=== PATIENT | female | born 1980 | race Caucasian/White ===

== ENCOUNTER 2017-12-29 09:00 | Inpatient (IN) ==
--- NOTE | 2017-12-29 09:40 | Emergency Department Note ---
Disposition Clinical Impression: Community acquired pneumonia Qualifiers: Laterality: right Lung location: middle lobe of lung Qualified Code(s): J18.1 - Lobar pneumonia, unspecified organism Disposition: Admitted As Inpatient Condition: Fair General Adult HPI - General Chief complaint: ED Shortness of Breath/Dyspnea Stated complaint: CAS Time Seen by Provider: 12/29/17 09:06 Source: patient, family Mode of arrival: ambulatory Limitations: no limitations Nursing Notes Reviewed: Yes Vital Signs Reviewed: Yes - History of Present Illness HPI Narrative: 37-year-old female with no significant past medical history but known methamphetamine and IV heroin abuse presenting to the emergency department chief complaint of right axilla pain. Patient states this morning she woke up and she had severe right axilla pain. Denies any radiation into the chest. She states she is unable to take a deep breath due to the pain. Denies any IV injection into the site. Denies any rash. Patient states she has been having chills at home but denies any fevers or cough or productive sputum. Patient denies any cardiac or respiratory history. Denies any COPD or asthma. She does state that she smoked methamphetamine approximately 5 days ago. Pain Scale: 9 - Related Data Home Medications Medication Instructions Recorded Confirmed No Known Home Drugs 01/24/16 01/24/16 Allergies Allergy/AdvReac Type Severity Reaction Status Date / Time No Known Allergies Allergy Verified 01/24/16 20:07 All systems ED: reviewed and negative except as stated. Constitutional: Reports: chills. Denies: fever, weakness Eyes: Reports: as per HPI ENT ED: Reports: as per HPI Cardiovascular: Denies: chest pain, palpitations, dyspnea on exertion Respiratory: Denies: cough, wheezes, hemoptysis Gastrointestinal: Denies: abdominal pain, nausea, vomiting Genitourinary: Reports: as per HPI Musculoskeletal: Reports: as per HPI Integumentary: Reports: as per HPI Neurological: Denies: weakness, numbness, paresthesias Psychiatric: Reports: as per HPI Endocrine: Reports: as per HPI Hematological/Lymphatic: Reports: as per HPI Allergic/Immunologic: Reports: as per HPI Past Medical History - Past Medical History Attestation: Yes The following information was validated with the patient. Medical history: Reports: hepatitis Surgical history: Reports: other (Bilateral tubal ligation) Psychiatric history: Reports: anxiety - Social History Smoking Status: Current every day smoker Smokeless Tobacco Status: No Alcohol use: Reports: occasionally Drug use: Reports: cocaine, opiates, marijuana, methamphetamine, IV Drug Use, prescription drug abuse Physical Exam - General Limitations: no limitations General appearance: alert, in no apparent distress - Head Head exam: atraumatic, normocephalic, normal inspection - Eye Eye exam: Present: normal appearance. Absent: scleral icterus, conjunctival injection - ENT ENT exam: mucous membranes dry - Neck Neck exam: Present: normal inspection, full ROM - Chest Chest inspection: Present: normal inspection, symmetric chest wall rise, tenderness (Tenderness to the right axilla and anterior chest wall. No fluctuance, rash or crepitus on exam). Absent: rash - Respiratory Respiratory exam: Present: other (decreased breath sounds throughout) - Cardiovascular Cardiovascular exam: Present: normal rhythm, tachycardia, normal heart sounds - Abdominal Exam Abdominal exam: Present: soft, Non-Tender. Absent: distention, guarding, rebound - Extremities Exam Extremities exam: Present: normal inspection, full ROM - Neurological Exam Neurological exam: Present: alert, oriented X3 - Psychiatric Psychiatric exam: Present: normal affect, normal mood - Skin Skin exam: Present: warm, intact Course Course Narrative: 37-year-old female presenting with right axilla pain. On exam patient does not have any sign of rash or abscess or crepitus in this area. Patient does state she smoked crystal meth approximately 5 days ago. Patient tachycardic in the room but otherwise vital signs stable. She is alert and oriented 3. At this time we will obtain basic laboratory analysis including CBC, CMP, two-view chest x-ray and EKG. Due to patient's history and tachycardia were also obtain a d-dimer. Disposition pending results. Patient agrees with this plan. - Reevaluation(s) Reevaluation #1: Patient d-dimer elevated. Chest x-ray shows possible pneumonia. We will obtain a CTA of the chest. Disposition pending results. Patient is alert and oriented 3 in the room with stable vital signs. Patient agrees with this plan. Reevaluation #2: CTA of the chest shows pneumonia. Concerning for septic emboli. Although patient is not febrile at this time a she does have history of IV drug use. We will plan to admit the patient for rule out endocarditis and treatment of community-acquired pneumonia. Patient is alert and oriented 3 in the room with stable vital signs. Patient agrees with this plan. I spoke with the hospitalist supervisor commissary production Dr. Acevedo who agrees to accept the patient. She would like us to provide the patient with ceftriaxone and azithromycin. Due to our concern for endocarditis we will also provide the patient with a one-time dose of vancomycin. Vital Signs Temperature 98 F 12/29/17 09:03 Pulse Rate 94 12/29/17 09:03 Respiratory Rate 20 12/29/17 09:03 Blood Pressure 109/74 12/29/17 09:03 O2 Sat by Pulse Oximetry 99 12/29/17 09:03 Temperature 98 F 12/29/17 09:10 Pulse Rate 101 12/29/17 14:54 Respiratory Rate 18 12/29/17 14:54 Blood Pressure 109/74 12/29/17 09:10 O2 Sat by Pulse Oximetry 99 12/29/17 14:54 Oxygen Delivery Oxygen Delivery Room Air Medical Decision Making - Lab Data Result diagrams: 12/29/17 10:23 12/29/17 10:23 Lab Results 12/29/17 12/29/17 12/29/17 Range/Units 10:23 10:23 10:23 WBC 7.8 (4.3-11.1) K/mcL RBC 4.29 (3.82-4.97) M/mcL Hgb 11.6 (11.5-15.4) g/dL Hct 35.7 (35.3-44.9) % MCV 83.2 (83.0-100.0) fL MCH 27.0 L (28.0-33.3) pg MCHC 32.5 (31.6-35.5) g/dL RDW 16.9 H (11.5-14.5) % Plt Count 107 L (140-400) K/mcL MPV 11.4 (9.4-12.4) fL Immature Gran % 0.4 (0-4) % Seg Neutrophils % 77.0 % Lymphocytes % 9.6 % Monocytes % 9.3 % Eosinophils % 3.6 % Basophils % 0.1 % Neutrophils # 6.0 (1.6-8.9) K/mcL Lymphocytes # 0.8 (0.6-4.6) K/mcL Monocytes # 0.7 (0.0-1.3) K/mcL Eosinophils # 0.3 (0.0-0.6) K/mcL Basophils # 0.0 (0.0-0.2) K/mcL Reactive Lymphocytes Present A (Not Present) Platelet Estimate Slight Decrease L (Normal) D-Dimer 2034 H (0-500) ng/mLFEU Sodium 133 L (136-145) mEq/L Potassium 3.2 L (3.5-5.1) mEq/L Chloride 98 (98-107) mEq/L Carbon Dioxide 27 (23-29) mEq/L BUN 19 (6-20) mg/dL Creatinine 0.81 (0.60-1.20) mg/dL Est GFR ( Amer) > 60 (> 60) Est GFR (Non-Af Amer) > 60 (> 60) BUN/Creatinine Ratio 23 (6-26) Glucose 105 (70-105) mg/dL Calculated Osmolality 279 L (280-300) Calcium 9.2 (8.6-10.3) mg/dL - EKG Data EKG #1 EKG attestation: Yes I reviewed and interpreted this EKG. EKG results narrative: Sinus tachycardia. On September 21 bpm. PVCs. OR interval 1:15, QRS 85, QTC 438. No sign of acute ST segment elevation or ischemia. Compared to previous EKG completed on 01/24/2016 no significant changes noted
--- NOTE | 2017-12-29 09:42 | Emergency Department Note ---
Disposition Clinical Impression: Community acquired pneumonia Qualifiers: Laterality: right Lung location: middle lobe of lung Qualified Code(s): J18.1 - Lobar pneumonia, unspecified organism Disposition: Admitted As Inpatient Condition: Fair Time of Disposition: 15:11 General Adult HPI - General Chief complaint: ED Shortness of Breath/Dyspnea Stated complaint: CAS Time Seen by Provider: 12/29/17 09:06 Source: patient, family Limitations: no limitations - History of Present Illness Pain Scale: 9 - Related Data Home Medications Medication Instructions Recorded Confirmed No Known Home Drugs 01/24/16 01/24/16 Allergies Allergy/AdvReac Type Severity Reaction Status Date / Time No Known Allergies Allergy Verified 01/24/16 20:07 Past Medical History - Past Medical History Medical history: Reports: hepatitis Surgical history: Reports: other (Bilateral tubal ligation) Psychiatric history: Reports: anxiety - Social History Smoking Status: Current every day smoker Smokeless Tobacco Status: No Alcohol use: Reports: occasionally Drug use: Reports: cocaine, opiates, marijuana, methamphetamine, IV Drug Use, prescription drug abuse Physical Exam - General Limitations: no limitations General appearance: alert, in no apparent distress Course Vital Signs Temperature 98 F 12/29/17 09:03 Pulse Rate 94 12/29/17 09:03 Respiratory Rate 20 12/29/17 09:03 Blood Pressure 109/74 12/29/17 09:03 O2 Sat by Pulse Oximetry 99 12/29/17 09:03 Temperature 98 F 12/29/17 09:10 Pulse Rate 101 12/29/17 14:54 Respiratory Rate 18 12/29/17 14:54 Blood Pressure 109/74 12/29/17 09:10 O2 Sat by Pulse Oximetry 99 12/29/17 14:54 Oxygen Delivery Oxygen Delivery Room Air Medical Decision Making - Lab Data Result diagrams: 12/29/17 10:23 12/29/17 10:23 Lab Results 12/29/17 12/29/17 12/29/17 Range/Units 10:23 10:23 10:23 WBC 7.8 (4.3-11.1) K/mcL RBC 4.29 (3.82-4.97) M/mcL Hgb 11.6 (11.5-15.4) g/dL Hct 35.7 (35.3-44.9) % MCV 83.2 (83.0-100.0) fL MCH 27.0 L (28.0-33.3) pg MCHC 32.5 (31.6-35.5) g/dL RDW 16.9 H (11.5-14.5) % Plt Count 107 L (140-400) K/mcL MPV 11.4 (9.4-12.4) fL Immature Gran % 0.4 (0-4) % Seg Neutrophils % 77.0 % Lymphocytes % 9.6 % Monocytes % 9.3 % Eosinophils % 3.6 % Basophils % 0.1 % Neutrophils # 6.0 (1.6-8.9) K/mcL Lymphocytes # 0.8 (0.6-4.6) K/mcL Monocytes # 0.7 (0.0-1.3) K/mcL Eosinophils # 0.3 (0.0-0.6) K/mcL Basophils # 0.0 (0.0-0.2) K/mcL Reactive Lymphocytes Present A (Not Present) Platelet Estimate Slight Decrease L (Normal) D-Dimer 2034 H (0-500) ng/mLFEU Sodium 133 L (136-145) mEq/L Potassium 3.2 L (3.5-5.1) mEq/L Chloride 98 (98-107) mEq/L Carbon Dioxide 27 (23-29) mEq/L BUN 19 (6-20) mg/dL Creatinine 0.81 (0.60-1.20) mg/dL Est GFR ( Amer) > 60 (> 60) Est GFR (Non-Af Amer) > 60 (> 60) BUN/Creatinine Ratio 23 (6-26) Glucose 105 (70-105) mg/dL Calculated Osmolality 279 L (280-300) Calcium 9.2 (8.6-10.3) mg/dL Attestation Statement - Attestation Attestation: I examined this patient and my medical decision-making was reviewed with the Resident Physician. I agree with the documented findings, disposition and treatment plan as described except to the extent set forth below. Patient to the ED complaining of pain in her right axilla. Onset yesterday. Denies injury. Denies fever. She does complain of a dry cough. States it hurts when she breathes. On examination patient sitting on the edge of the bed holding her right side. Does not want to move her right arm and she states it exacerbates the pain. There is no swelling over the area. There is no rash. There is no lesions. There is no crepitus. There is no swelling. Plan. Patient is an IV drug user. Last used 3 days ago. She has no central chest pain. No fever. No signs of endocarditis. She does not inject in this area. Her lungs are symmetric and clear. She is mildly tachycardic at 105 check a d- dimer. Chest x-ray EKG. EKG shows a mild tachycardia. No ischemic changes. Likely discharge if workup unremarkable. CT read as possible septic emboli. We will give IV vancomycin. Patient admitted for echo and blood cultures.
[2017-12-29 10:41] LABS: Basophils % 0.1 %; Eosinophils # 0.3 K/mcL (0.0-0.6); Eosinophils % 3.6 %; Hematocrit 35.7 % (35.3-44.9); Hemoglobin 11.6 g/dL (11.5-15.4); Immature Granulocytes % 0.4 % (0-4); Lymphocytes # 0.8 K/mcL (0.6-4.6); Lymphocytes % 9.6 %; Mean Corpuscular HGB Conc 32.5 g/dL (31.6-35.5); Mean Corpuscular Volume 83.2 fL (83.0-100.0); Mean Platelet Volume 11.4 fL (9.4-12.4); Monocytes # 0.7 K/mcL (0.0-1.3); Monocytes % 9.3 %; Platelet Count 107 K/mcL (140-400); Red Blood Count 4.29 M/mcL (3.82-4.97); Red Cell Distribution Width 16.9 % (11.5-14.5)
[2017-12-29 10:45] LABS: Platelet Estimate Slight Decrease (Normal); Reactive Lymphocytes Present (Not Present)
[2017-12-29 10:58] LABS: Calcium 9.2 mg/dL (8.6-10.3); Carbon Dioxide 27 mEq/L (23-29); Chloride 98 mEq/L (98-107); Glucose 105 mg/dL (70-105); Potassium 3.2 mEq/L (3.5-5.1); Sodium 133 mEq/L (136-145); eGFR For Non-African Americans > 60 (> 60)
[2017-12-29] MEDS ORDERED: Isovue-370 500 ML INFUS..BTL IV ONE (11:00)
[2017-12-29 11:26] LABS: BUN/Creatinine Ratio 23 (6-26); Blood Urea Nitrogen 19 mg/dL (6-20); Osmolality,Calculated 279 (280-300)
[2017-12-29] MEDS ORDERED: Ketorolac 15 MG/ML VIAL IVP ONE (13:12)
[2017-12-29] MEDS ORDERED: Naloxone 0.4 MG/ML INJ IVP PRN (13:28)
[2017-12-29] MEDS: cefTRIAXone 2,000 MG in Water for inj. (sterile) 20 ML 20 ML IVP ONE ×2 (13:54→14:10)
[2017-12-29] MEDS: Azithromycin 500 MG in D5% in Water 250 ML IVPB ONE ×2 (13:54→14:10)
--- NOTE | 2017-12-29 14:09 | Internal Med History&Physical ---
Date of Encounter: 12/29/17 Time of Encounter: 14:07 Internal Medicine - H&P: HPI Chief complaint: Chest pain Admitted From: Home Plans for Post Hospital Care: Home History of present illness: Ms. Arroyo is a 37 year old female with medical history of IV drug abuse and amphetamine abuse The patient presented to the emergency room with complaints of pleuritic chest pain that started 4 days ago. She reports being in her usual state of health until 4 days ago after shooting IV hearing through 1 over extremity veins developed sudden onset right-sided pleuritic chest pain radiating to her right axilla. Chest pain was worse on deep breathing, non-exertional with no known relieving or aggravating factors. She also reports onset of skin rash on her right lower extremity and left flank area around the same period. She denies fever or chills. She denies shortness of breath she denies cough. She has no sick contacts and she has no recent travels. She reports associated malaise and fatigue. She also reports associated arthralgias, poor urinary output, as well as myalgias. She reports smoking marijuana every other day, and injecting hearing when affordable. Last time she used IV heroine was 4 days ago. Workup in the ER was significant for sinus tachycardia with heart rate ranging from 90-110, hyponatremia and hypokalemia, no leukocytosis. She is afebrile. She has tachypnea with respiratory rates of 20. D-dimer was elevated at 2034. Chest CT showed possible septic emboli. The patient will be admitted inpatient for sepsis and suspected infective endocarditis. She is full code and educated about her diagnoses. Past Med Surg Social Fam HX - Past Medical History Medical history: hepatitis Additional medical history: chronic leg pain Psychiatric history: anxiety - Past Surgical History Surgical History: other (Bilateral tubal ligation) Additional surgical history: toncils removed, tubal ligation - Social History Smoking Status: Current every day smoker Smokeless Tobacco Status: No Alcohol use: occasionally Drug use: cocaine, opiates, marijuana, methamphetamine, IV Drug Use, prescription drug abuse - Family History Mother Living Status: Hx Family Endocrine Disorder: Yes Father Living Status: Still Living Internal Medicine - H&P: Meds No Known Home Drugs 01/24/16 [History] 3 Allergy/AdvReac Type Severity Reaction Status Date / Time No Known Allergies Allergy Verified 01/24/16 20:07 All Systems PM: A 10-system review of systems was performed and is negative for pertinent findings except as documented above in the HPI. - Constitutional Constitutional: chills, fever(s), malaise - EENT Eyes: no change in vision, no discharge, no pain, no photophobia Ears: no ear discharge, no ear pain, no tinnitus Nose, mouth and throat: no dysphagia, no nasal discharge, no neck pain, no sore throat - Cardiovascular Cardiovascular ROS IM: chest pain - Respiratory Respiratory: dyspnea, pain on inspiration - Gastrointestinal Gastrointestinal: no abdominal pain, no diarrhea, no hematemesis, no hematochezia, no melena, no nausea, no vomiting - Genitourinary Genitourinary: no change in urinary stream, no dysuria, no flank pain, no hematuria - Musculoskeletal Musculoskeletal ROS IM: arthralgias, no numbness, no tingling - Integumentary Integumentary IM: no rash, no unusual bruising - Neurological Neurological ROS: no confusion, no convulsions, no focal weakness, no numbness, no tingling, no tremor(s) - Hematologic/Lymphatic Hematologic/Lymphatic: no easy bruising - Constitutional Vitals: Temp Pulse Resp BP Pulse Ox 98 F 94 20 109/74 99 12/29/17 09:10 12/29/17 09:10 12/29/17 09:10 12/29/17 09:10 12/29/17 09:10 General appearance: Present: disheveled, mild distress (mild painful distress), pleasant Exam: see detailed exam below - Head Head exam: Present: atraumatic - Eye Eye exam: Present: PERRL, conjuntiva pink, sclera anicteric - ENT ENT exam: Present: mucous membranes moist - Neck Neck exam general surgery: Present: normal inspection - Respiratory Additional comments: Decreaased air entry bilaterally Exam limited by pleuritic pain, patient taking shallow breaths - Cardiovascular Cardiovascular exam: Present: +S1, +S2, systolic murmur (2nd LICS systolic murmur), tachycardia - GI/Abdominal GI/Abdominal exam: Present: normal bowel sounds, soft, no peritoneal signs. Absent: distended, tenderness - Extremities Exam Extremities exam: Present: warm, radial pulses palpable and symmetrical. Absent : calf tenderness, cyanotic, pedal edema - Neurological Exam Neurological exam: Present: alert, CN II-XII intact, oriented X3, no focal deficits. Absent: pronater drift, facial droop, speech deficit - Skin Skin exam: Present: dry, petechiae, rash. Absent: cyanosis, urticaria Additional comments: track holcomb from prior IV drug site Internal Med - H&P Results - Labs CBC & Chem 7: 12/29/17 10:23 12/29/17 10:23 - Assessment and plan (1) Infective endocarditis Current Visit: Yes Status: Suspected Assessment and plan: Patient with history of IV drug abuse, last use 4 days ago prior to onset of symptoms of pleuritic chest pain, mildly, arthralgias and skin rash. Workup here shows thrombocytopenia which is new, she has a new cardiac murmur, CAT scan shows septic emboli to both lungs Blood cultures have been drawn in the emergency room, will follow Repeat blood culture tomorrow a.m. Obtain echocardiogram to rule out vegetations Started on vancomycin and Zosyn empirically Monitor Vanco trough High-risk diagnosis Qualifiers: Infective endocarditis organism: unspecified organism Chronicity: acute Qualified Code(s): I33.0 - Acute and subacute infective endocarditis (2) Sepsis Current Visit: Yes Status: Acute Assessment and plan: Meets sepsis criteria with tachycardia HR >90, tachypnea, Bilateral PNA on Chest imaging Secondary to bilateral pneumonia and infective endocarditis. She also has new thrombocytopenia Obtain lactic acid STAT IVF hydration Follow blood cultures Patient is not making sputum, send urine legionella, and strep Ag Qualifiers: Sepsis type: sepsis due to unspecified organism Qualified Code(s): A41.9 - Sepsis, unspecified organism (3) Pneumonia Current Visit: Yes Status: Acute Assessment and plan: Management as an infective endocarditis patient has no cough and no sputum production Bilateral infiltrates on imaging suspicious for septic emboli Continue antibiotics Patient is not hypoxic, O2 supplementation prn Qualifiers: Pneumonia type: due to unspecified organism Laterality: bilateral Lung location: unspecified part of lung Qualified Code(s): J18.9 - Pneumonia, unspecified organism (4) Opiate abuse, continuous Current Visit: Yes Status: Chronic Assessment and plan: monitor for withdrawals treat withdrawals symptomatically encouraged cessation (5) Amphetamine abuse Current Visit: Yes Status: Chronic Assessment and plan: monitor for withdrawal, encourage cessation (6) Tobacco abuse Current Visit: Yes Status: Chronic Assessment and plan: encourage cessation NRT prn - Time Spent With Patient Total time spent is greater than 50% in coordination of care (as documented) at patient's floor/unit and/or counseling patient:
[2017-12-29] MEDS: Piperacillin/Tazobactam 3.375 GM in 0.9 % Sodium Chloride Mini Bag 100 ML IVPB SCH (15:43)
[2017-12-29] MEDS: 0.9 % Sodium Chloride 1,000 ML IVC SCH (15:44)
[2017-12-29 17:32] LABS: Adenovirus Not Detected (Not Detect); Bordetella Pertussis Not Detected (Not Detect); Chlamydophila pneumoniae Not Detected (Not Detect); Coronavirus 229E Not Detected (Not Detect); Coronavirus HKU1 Not Detected (Not Detect); Coronavirus NL63 Not Detected (Not Detect); Coronavirus OC43 Not Detected (Not Detect); Human Metapneumovirus Not Detected (Not Detect); Human Rhinovirus/Enterovirus DETECTED (Not Detect); Influenza A Subtype 2009 H1 Not Detected (Not Detect); Influenza A Untypeable Not Detected (Not Detect); Influenza B Not Detected (Not Detect); Mycoplasma pneumoniae Not Detected (Not Detect); Parainfluenza Virus 1 Not Detected (Not Detect); Parainfluenza Virus 2 Not Detected (Not Detect); Parainfluenza Virus 3 Not Detected (Not Detect); Parainfluenza Virus 4 Not Detected (Not Detect); Respiratory Syncytial Virus Not Detected (Not Detect)
[2017-12-29] MEDS ORDERED: *HR* LORazepam 2 MG/ML VIAL IVP ONE (19:17)
[2017-12-30] MEDS: Piperacillin/Tazobactam 3.375 GM in 0.9 % Sodium Chloride Mini Bag 100 ML IVPB SCH ×3 (01:47→17:46)
[2017-12-30 02:46] LABS: Alanine Aminotransferase 11 Units/L (7-52); Albumin 2.7 g/dL (3.5-5.7); Albumin/Globulin Ratio 0.8 (1.1-2.2); Alkaline Phosphatase 96 Units/L (34-104); Aspartate Amino Transferase 9 Units/L (13-39); BUN/Creatinine Ratio 21 (6-26); Bilirubin,Total 0.3 mg/dL (0.3-1.0); Blood Urea Nitrogen 17 mg/dL (6-20); Calcium 8.3 mg/dL (8.6-10.3); Carbon Dioxide 25 mEq/L (23-29); Chloride 102 mEq/L (98-107); Globulin 3.3 g/dL (2.4-3.5); Glucose 119 mg/dL (70-105); Osmolality,Calculated 279 (280-300); Potassium 3.2 mEq/L (3.5-5.1); Sodium 133 mEq/L (136-145); eGFR For Non-African Americans > 60 (> 60)
[2017-12-30] MEDS: 0.9 % Sodium Chloride 1,000 ML IVC SCH ×4 (03:23→20:57)
[2017-12-30] MEDS: Acetaminophen 325 MG TABLET PO PRN ×2 (08:18→15:09)
--- NOTE | 2017-12-30 08:27 | Internal Med Progress Note ---
<Nena Sutherland N - Last Filed: 12/30/17 14:11> Hospitalist Progress Note - Encounter Date of Encounter: 12/30/17 Time of Encounter: 08:27 - Subjective Interval History: Ms. Arroyo is a 37-year old female who presented to the ED on 12/29 complaining of pleuritic chest pain that first began approximately 4 days ago after shooting IV heroin. Chest CTA performed in the ED was significant for right middle lobe pneumonia and multiple lung lesions concerning for acute infective processes and/or septic emboli. She was admitted for workup and treatment of possible sepsis and suspected infective endocarditis. Nursing staff reported that the patient was complaining of 8/10 right-sided chest pain that was worse with cough. They also reported that her last bowel movement was approximatley 1-2 weeks ago; however, she refused any treatment for that saying "once the drugs get out of my system I'll go like crazy". At the time of exam, she was agitated and mildly diaphoretic. She denied any shortness of breath but did report non-reproducible right-sided chest/lung pain. She refused blood draw this morning, saying she "did not want to be stuck again"; however, she voiced agreement to obtaining additional IV access to allow for blood draws throughout her stay. She stated that she was starting to go through withdrawals and asked for something to make that process easier. She says that she was trying to "get clean" prior to this hospitalization. - Exam Vitals: Temp Pulse Resp BP Pulse Ox 99.3 F 101 16 117/73 92 12/30/17 08:13 12/30/17 08:13 12/30/17 08:13 12/30/17 08:13 12/30/17 08:13 Exam: * General: Adult female sitting up in bed. She appears restless and in mild distress. She is mildly diaphoretic. * HEENT: Atraumatic and normocephalic. * Cardiovascular: Regular rate and rhythm. S1 and S2 present. Murmur present over tricuspid area. * Respiratory: Diffuse expiratory wheezes present, worse on right. Diffusely decreased breath sounds bilaterally. Patient appears slightly dyspneic. * Gastrointestinal: Bowel sounds present x 4 quadrants. Abdomen is soft and nontender without rebound or guarding. * Extremities: No clubbing, cyanosis, or edema. - Assessment and Plan (1) Infective endocarditis Current Visit: Yes Status: Suspected Assessment and Plan: On initial evaluation in the ED, significant laboratory findings were as follows : WBC 7.8, platelets 107, presence of reactive lymphocytes, d-dimer 2034, sodium 133, and potassium 3.2. Reactive lymphocytes present. Lactric acid was 1.5 Chest XR demonstrated mild right-sided airspace disease and possible fluid within the fissure on the lateral view suspicious for pneumonia. Chest CTA demonstrated no evidence of acute pulmonary embolism. CTA did demonstrate peripheral ground-glass and consolidative opacity with the anterior right middle lobe most compatible with pneumonia. Further findings included scattered pulmonary nodules throughout both lungs concerning for acute inflammatory/infectious process, which may include septic emboli. Considering this patient's recent use of IV heroin, infectious disease has been consulted due to suspicion of septic emboli and new-onset murmur heard over tricuspid area. She has been started on vancomycin and zosyn. Blood and sputum cultures are pending. (2) Pneumonia Current Visit: Yes Status: Acute Assessment and Plan: Since admission, patient has developed cough productive of thick yellow sputum. She is currently on zosyn and vancomycin for suspected endocarditis. She does complain of 8/10 right-sided lung pain, particularly when coughing. Plan to continue with broad antibiotic coverage and duonebs Q6H PRN dyspnea/wheezing. Further evaluation per infectious disease recommendations. (3) Opiate abuse, continuous Current Visit: Yes Status: Chronic Assessment and Plan: Patient reports last using IV heroin approximately 4-5 days ago. She says she feels like she is starting to withdraw; however, vital signs remain stable. Will continue to monitor closely for symptoms of withdrawal. (4) Tobacco abuse Current Visit: Yes Status: Chronic Assessment and Plan: Nicotine patch PRN. DVT Prophylaxis: IPCDs. - Time Spent with Patient Total time spent is greater than 50% in coordination of care (as documented) at patient's floor/unit and/or counseling patient: Internal Medicine: Result - Labs CBC & Chem 7: 12/30/17 11:53 12/30/17 02:10 Labs: BMP 12/30/17 02:10 Sodium 133 L Potassium 3.2 L Chloride 102 Carbon Dioxide 25 BUN 17 Creatinine 0.81 Glucose 119 H Calcium 8.3 L Liver Function 12/30/17 Range/Units 02:10 Total Bilirubin 0.3 (0.3-1.0) mg/dL AST 9 L (13-39) Units/L ALT 11 (7-52) Units/L Alkaline Phosphatase 96 (34-104) Units/L Albumin 2.7 L (3.5-5.7) g/dL - ABG Interpretation ABG results: PT/INR, D-dimer D-Dimer 2034 ng/mLFEU (0-500) H 12/29/17 10:23 Consult Discharge Plan - Plan Referrals: NONE,PCP [Primary Care Provider] - <Tasia Montano - Last Filed: 12/30/17 14:38> Hospitalist Progress Note - Encounter Date of Encounter: 12/30/17 Time of Encounter: 14:30 - Exam Vitals: Temp Pulse Resp BP Pulse Ox 98.8 F 156 16 124/79 96 12/30/17 12:24 12/30/17 12:24 12/30/17 12:24 12/30/17 12:24 12/30/17 12:24 - Assessment and Plan (1) Infective endocarditis Current Visit: Yes Status: Suspected (2) Pneumonia Current Visit: Yes Status: Acute (3) Opiate abuse, continuous Current Visit: Yes Status: Chronic (4) Tobacco abuse Current Visit: Yes Status: Chronic - Time Spent with Patient Total time spent is greater than 50% in coordination of care (as documented) at patient's floor/unit and/or counseling patient: Internal Medicine: Result - Labs CBC & Chem 7: 12/30/17 11:53 12/30/17 02:10 Labs: Short CBC 12/30/17 Range/Units 11:53 WBC 6.3 (4.3-11.1) K/mcL Hgb 9.4 L D (11.5-15.4) g/dL Hct 29.1 L (35.3-44.9) % Plt Count 128 L (140-400) K/mcL Neutrophils # 4.3 (1.6-8.9) K/mcL BMP 12/30/17 02:10 Sodium 133 L Potassium 3.2 L Chloride 102 Carbon Dioxide 25 BUN 17 Creatinine 0.81 Glucose 119 H Calcium 8.3 L Liver Function 12/30/17 Range/Units 02:10 Total Bilirubin 0.3 (0.3-1.0) mg/dL AST 9 L (13-39) Units/L ALT 11 (7-52) Units/L Alkaline Phosphatase 96 (34-104) Units/L Albumin 2.7 L (3.5-5.7) g/dL - ABG Interpretation ABG results: PT/INR, D-dimer D-Dimer 2034 ng/mLFEU (0-500) H 12/29/17 10:23 - Attending Attestation I saw evaluated and examined this patient and my medical decision-making was reviewed with the Resident Physician, Nena Sutherland. I agree with the documented findings, disposition and treatment plan as described except to any changes set forth below. We independently had [id number] contact with the patient. Patient is lying in bed. Very somnolent but awakes. Reports chest pain with deep breaths. No palpitations. No episodes of fever this morning. No nausea or vomiting. No abdominal pain. Patient has coarse rhonchi bilaterally. S1 and S2 are normal. Does have a murmur. Abdomen is soft. Sepsis with possible infective endocarditis and pneumonia: Pneumonia with septic emboli. Continue IV antibiotics. Infectious disease consult requested. We will follow recommendations. Monitor vital signs closely. Monitor WBC count. Blood cultures. Respiratory infection panel positive for enterovirus. Awaiting 2-D echocardiogram results. High risk for complications. History of IV drug abuse. Most recent use within the past week. We will monitor for withdrawal. DVT prophylaxis with subcutaneous heparin <Nena Sutherland N - Last Filed: 12/30/17 14:11> (1) Infective endocarditis Qualifiers: Infective endocarditis organism: unspecified organism Chronicity: acute Qualified Code(s): I33.0 - Acute and subacute infective endocarditis (2) Pneumonia Qualifiers: Pneumonia type: due to unspecified organism Laterality: bilateral Lung location: unspecified part of lung Qualified Code(s): J18.9 - Pneumonia, unspecified organism <Tasia Montano - Last Filed: 12/30/17 14:38> (1) Infective endocarditis Qualifiers: Infective endocarditis organism: unspecified organism Chronicity: acute Qualified Code(s): I33.0 - Acute and subacute infective endocarditis (2) Pneumonia Qualifiers: Pneumonia type: due to unspecified organism Laterality: bilateral Lung location: unspecified part of lung Qualified Code(s): J18.9 - Pneumonia, unspecified organism
[2017-12-30] MEDS ORDERED: Ipratropium/Albuterol Neb 3 ML IH PRN (09:34)
[2017-12-30] MEDS ORDERED: Lidocaine -MPF 1% 2 ML VIAL ID PRN (09:35)
[2017-12-30] MEDS: Ketorolac 30 MG/ML VIAL IVP PRN ×2 (11:36→20:59)
[2017-12-30 12:16] LABS: VBG Ionized Calcium 1.13 mmol/L (1.15-1.35)
[2017-12-30 12:17] LABS: Basophils % 0.2 %; Eosinophils # 0.2 K/mcL (0.0-0.6); Eosinophils % 3.6 %; Hematocrit 29.1 % (35.3-44.9); Immature Granulocytes % 1.1 % (0-4); Lymphocytes % 15.8 %; Mean Corpuscular HGB Conc 32.3 g/dL (31.6-35.5); Mean Corpuscular Hemoglobin 26.8 pg (28.0-33.3); Mean Corpuscular Volume 82.9 fL (83.0-100.0); Mean Platelet Volume 10.7 fL (9.4-12.4); Monocytes # 0.7 K/mcL (0.0-1.3); Monocytes % 10.6 %; Platelet Count 128 K/mcL (140-400); Red Blood Count 3.51 M/mcL (3.82-4.97); Segmented Neutrophils % 68.7 %
[2017-12-30 12:32] LABS: Hemoglobin 9.4 g/dL (11.5-15.4); Neutrophils # 4.3 K/mcL (1.6-8.9)
[2017-12-30 13:06] LABS: Platelet Estimate Normal (Normal); Reactive Lymphocytes Present (Not Present)
--- NOTE | 2017-12-30 13:08 | Infectious Disease Consult ---
Date of Encounter: 12/30/17 Time of Encounter: 13:03 Assessment and Plan (1) Community acquired pneumonia Status: Acute Assessment and plan: Peripheral groundglass and consolidative opacity within the anterior right middle lobe compatible with pneumonia Respiratory infectious panel positive for rhinovirus Get sputum culture Get urine legionella and pneumococcal antigen Agree with broad-spectrum antibiotics including vancomycin and Zosyn. Qualifiers: Laterality: right Lung location: middle lobe of lung Qualified Code(s): J18.1 - Lobar pneumonia, unspecified organism (2) Pulmonary nodules/lesions, multiple Status: Acute Assessment and plan: etiology not clear infectious vs inflammatory vs septic emboli? patient with high risk behavior including IV drug use and history of hepatitis C Patient has only one SIRS criteria so she does not meet sepsis Patient has been incarcerated in the past and is currently homeless and is IV drug user I will put the patient in airborne isolation, check QuantiFERON and AFB smears 3; check sputum cultures Also check HIV and hepatitis B profile Check urine legionella and pneumococcal antigen Await cultures to finalize Agree with broad-spectrum antibiotics until cultures finalize Goal vancomycin trough 10-15 Monitor labs for drug toxicity. (3) Pleuritic chest pain Status: Acute (4) Hepatitis C Status: Acute Qualifiers: Viral hepatitis chronicity: chronic Hepatic coma status: without hepatic coma Qualified Code(s): B18.2 - Chronic viral hepatitis C (5) IVDU (intravenous drug user) Status: Acute (6) Tobacco abuse Status: Chronic Infectious Disease HPI - Data of Consult Patient: new to practice Consult date: 12/30/17 Requesting Physician: Tasia Montano MD Primary Care Provider: PCP NONE - Consult Narrative Reason for consult: septic emboli History of present illness: Ms. Arroyo is a 37 year old female Patient is a 37-year-old woman who presented to [facility] on 12/29/2017 with pleuritic chest pain, we are consulted today for septic emboli of the lungs. Patient is a 37-year-old woman with past medical history positive for hepatitis C diagnosed a few years back that has never been treated and social history positive for IV drug use including heroin lost weak and amphetamine in the past. Currently homeless and tells me he has been incarcerated in the past came in with pleuritic chest pain and right side of the ribs under the armpits almost. Patient apparently states that the chest pain is pleuritic started 4-5 days prior to admission. Patient states that she has been having chills but denies knowing having fevers. Patient has been having cough but she told me she was not having any sputum production when she was at home but tells me now she is having sputum production. Since admission, patient's MAXIMUM TEMPERATURE was 99.7, she has been tachycardic but not tachypneic. Patient has been hemodynamically stable. Presenting labs revealed WBC of 7.8 with normal differential and no bandemia, d- dimer of 2034, normal electrolytes and decreased total protein 6.0. LFTs were not elevated. Respiratory infectious panel was obtained and was positive for rhinovirus. Blood cultures 2 obtained on 12/29/2017 and 2 sets of 12/30/2017 and so far no growth. CT of the chest revealed peripheral groundglass and consolidative opacity within the anterior right middle lobe most compatible with pneumonia. There was scattered pulmonary nodules throughout both lungs with the largest measuring 1.2 cm in the right lower lobe. Given morphology and distribution, and acute inflammatory/infectious process is favored. I did review the CT myself. Currently patient on that she is feeling okay continues after chest pain. She is short of breath and having dyspnea on exertion. She is coughing up thick yellow sputum. Patient denies any hemoptysis. Breath sounds are decreased universally. Cardiovascular exam and did not appreciate any murmurs. Physical exam not suggestive for septic emboli until other joints or endocarditis stigmata of the skin. CC: Tasia Montano MD Past Med Surg Social Fam HX - Past Medical History Medical history: hepatitis Additional medical history: chronic leg pain Psychiatric history: anxiety - Past Surgical History Surgical History: , other Additional surgical history: tonsillectomy - Social History Smoking Status: Current every day smoker Smokeless Tobacco Status: No Alcohol use: occasionally Drug use: cocaine, opiates, marijuana, methamphetamine, IV Drug Use, prescription drug abuse - Family History Mother Living Status: Hx Family Endocrine Disorder: Yes (DM) Father History Unknown: Yes Living Status: Still Living Infectious Disease-CN:Meds No Known Home Drugs 01/24/16 [History] 3 Allergy/AdvReac Type Severity Reaction Status Date / Time No Known Allergies Allergy Verified 01/24/16 20:07 Review of systems: 10 point review of systems done, negative other for what is mentioned in the history of present illness. Exam - Constitutional Vitals: Temp Pulse Resp BP Pulse Ox 98.8 F 156 16 124/79 96 12/30/17 12:24 12/30/17 12:24 12/30/17 12:24 12/30/17 12:24 12/30/17 12:24 General appearance: cooperative, disheveled, no acute distress, no febrile - Head Head exam: Present: atraumatic, normocephalic - Eye Eye exam: Present: EOMI, PERRL, sclera anicteric Additional comments: No conjunctival hemorrhage noted - ENT ENT exam: Present: mucous membranes dry Additional comments: No oral lesions noted - Neck Neck exam: Present: full ROM, normal inspection. Absent: meningismus - Respiratory Additional comments: Air sounds audible both lung aguilar. Chest expanding symmetrically. Did not get any wheezing or rhonchi or crackles. But there was some diminished breath sounds. - Cardiovascular Cardiovascular exam: Present: RRR, +S1, +S2 Additional comments: I did not appreciate any murmur. - GI/Abdominal GI/Abdominal exam: Present: normal bowel sounds, soft. Absent: tenderness - Extremities Exam Extremities exam: Present: full ROM, normal inspection. Absent: joint swelling - Back Exam Back exam: Present: normal inspection. Absent: vertebral tenderness - Neurological Exam Neurological exam: Present: alert, oriented X3. Absent: no focal deficits - Psychiatric Psychiatric exam: Present: normal affect, normal mood - Skin Skin exam: Absent: rash Additional comments: No endocarditis stigmata Infectious Disease CN: Results - Labs CBC & Chem 7: 12/31/17 01:51 12/31/17 01:51 Cultures: Cultures 12/30/17 02:10 Blood Culture - Preliminary Peripheral Venipuncture Culture is incubating and being continuously monitored for growth. Final report to follow. 12/30/17 02:10 Blood Culture - Preliminary Peripheral Venipuncture Culture is incubating and being continuously monitored for growth. Final report to follow. 12/29/17 15:43 Blood Culture - Preliminary Peripheral Venipuncture Culture is incubating and being continuously monitored for growth. Final report to follow. 12/29/17 15:38 Blood Culture - Preliminary Peripheral Venipuncture Culture is incubating and being continuously monitored for growth. Final report to follow. Serology: Serology 09/09/18 Range/Units 16:06 Chlamy pneumoniae PCR Not Detected (Not Detect) Adenovirus (PCR) Not Detected (Not Detect) B. pertussis DNA (PCR) Not Detected (Not Detect) B.parapertussis DNA PCR Not Detected (Not Detect) Coronavirus OC43 (PCR) Not Detected (Not Detect) Coronavirus HKU1 (PCR) Not Detected (Not Detect) Coronavirus 229E (PCR) Not Detected (Not Detect) Coronavirus NL63 (PCR) Not Detected (Not Detect) Human Metapneumovir PCR Not Detected (Not Detect) Influenza A (H1) PCR Not Detected (Not Detect) Influ A (H1N1/09) PCR Not Detected (Not Detect) Influenza A (H3) PCR Not Detected (Not Detect) Influenza A Untype (PCR) Not Detected (Not Detect) Influenza Type B (PCR) Not Detected (Not Detect) M.pneumoniae DNA (PCR) Not Detected (Not Detect) Parainfluenza 1 (PCR) Not Detected (Not Detect) Parainfluenza 2 (PCR) Not Detected (Not Detect) Parainfluenza 3 (PCR) Not Detected (Not Detect) Parainfluenza 4 (PCR) Not Detected (Not Detect) RSV (PCR) Not Detected (Not Detect) Entero/Rhino (PCR) DETECTED A (Not Detect) Consult Discharge Plan - Plan Referrals: NONE,PCP [Primary Care Provider] -
[2017-12-30] MEDS ORDERED: Calcium Gluconate 2,000 MG in 0.9 % Sodium Chloride 100 ML IVPB ONE (13:38)
[2017-12-30] MEDS ORDERED: Azithromycin 500 MG in D5% in Water 250 ML IVPB SCH (14:00)
[2017-12-30] MEDS ORDERED: cefTRIAXone 2,000 MG in Water for inj. (sterile) 20 ML 20 ML IVP SCH (14:00)
[2017-12-30 15:19] LABS: Hepatitis B Surface Antigen Nonreactive (Nonreactive)
[2017-12-30 15:29] LABS: Hepatitis B Surface Antibody 32.37 mIU/mL
[2017-12-30 15:53] LABS: HIV-1&2 Antibody & p24 Ag Nonreactive (Nonreactive)
[2017-12-30] MEDS: *HR* Heparin 5,000 UNIT/ML VIAL SQ SCH (17:51)
--- NOTE | 2017-12-30 18:01 | Consult Note ---
Date of Encounter: 12/30/17 Time of Encounter: 16:00 Assessment & Recommendation (1) Opioid dependence with withdrawal Current visit: Yes Status: Acute (2) Opioid dependence with opioid-induced mood disorder Current visit: Yes Status: Acute History of Present Illness Patient: new to practice Requesting Physician: Tasia Montano MD Reason for consult: depressive symptoms, withdrawal History of present illness: Ms. Arroyo is a 37 year old female Chief complaint and just having bad withdrawal. I am tired of this I want to leave. History of present illness: The patient has been previously hospitalized and has had heroin use. If time. The patient is experiencing withdrawal symptoms including mood symptoms 80 symptoms and insomnia muscle cramps and sweating. The patient feels that she has not received treatment for the withdrawal and she is feeling sick and would like to leave. She says that she can go to her brother's house. She is aware of community resources. She has never had rehabilitation or detox although she is interested in giving up the use of opiates. When asked about withdrawal syndrome problems she says that comfort medicines tend not to help and she has a great deal swelling and that from her own experience she is used Suboxone 4 mg per day and this is not precipitated significant withdrawal. The patient reported no suicidal ideation homicidal ideation or psychosis CC: Tasia Montano MD Past Med Surg Social Fam HX - Past Medical History Source: patient Medical history: hepatitis - Past Psychiatric History Psychiatric history: Reports: depression Family psychiatric history: Unknown Family History of Suicide: Unknown - Past Surgical History Surgical History: , other - Social History Smoking Status: Current every day smoker Smokeless Tobacco Status: No Alcohol use: occasionally Drug use: cocaine, opiates, marijuana, methamphetamine, IV Drug Use, prescription drug abuse Occupational status: other Current living situation: Homeless Activity Level: Independent ambulation Recent Out of Country Travel Within the Last 8 Weeks: No Exposure or Possible Exposure to Illness During Travel: No - Family History Mother Living Status: Hx Family Endocrine Disorder: Yes (DM) Father History Unknown: Yes Living Status: Still Living Medications & Allergies No Known Home Drugs 01/24/16 [History] 3 Allergy/AdvReac Type Severity Reaction Status Date / Time No Known Allergies Allergy Verified 01/24/16 20:07 Review of Systems Gastrointestinal: Reports: nausea Psychiatric: Reports: change in appetite, anhedonia, difficulty concentrating, mood swings Psychiatry Exam - Constitutional Vitals: Temp Pulse Resp BP Pulse Ox 97.1 F L 77 16 103/64 99 12/30/17 16:52 12/30/17 16:52 12/30/17 16:52 12/30/17 16:52 12/30/17 16:52 General appearance: age & developmentally appropriate, thin - Psychiatric Patient Orientation: Yes Person, Yes Time, Yes Place Level of alertness: Alert Behavior: calm, cooperative, restless Psychomotor activity: Increased Eye Contact: Maintains Eye Contact Mood Description: Depressed Affect description: dysphoric Speech Volume: Soft/Quiet Speech pattern: normal rate, normal rhythm, normal tone, fluent, spontaneous Language & Vocabulary: consistent with education Thought Process: Linear, Goal Oriented Thought Content: No Suicidal ideation, No Homicidal ideation, No Overt delusions Perceptual Disturbances: No Auditory hallucinations, No Visual hallucinations Attention Span Ability: Capable of Focused Attention Memory Description: Grossly Intact Fund of knowledge: Yes abstraction ability, Yes above average, Yes aware of current events Intelligence Estimate: Above [place] Judgment: Fair Insight: Partial Results - Labs Labs: Laboratory Last Values WBC 6.3 K/mcL (4.3-11.1) 12/30/17 11:53 RBC 3.51 M/mcL (3.82-4.97) L 12/30/17 11:53 Hgb 9.4 g/dL (11.5-15.4) L D 12/30/17 11:53 Hct 29.1 % (35.3-44.9) L 12/30/17 11:53 MCV 82.9 fL (83.0-100.0) L 12/30/17 11:53 MCH 26.8 pg (28.0-33.3) L 12/30/17 11:53 MCHC 32.3 g/dL (31.6-35.5) 12/30/17 11:53 RDW 17.0 % (11.5-14.5) H 12/30/17 11:53 Plt Count 128 K/mcL (140-400) L 12/30/17 11:53 MPV 10.7 fL (9.4-12.4) 12/30/17 11:53 Immature Gran % 1.1 % (0-4) 12/30/17 11:53 Seg Neutrophils % 68.7 % 12/30/17 11:53 Lymphocytes % 15.8 % 12/30/17 11:53 Monocytes % 10.6 % 12/30/17 11:53 Eosinophils % 3.6 % 12/30/17 11:53 Basophils % 0.2 % 12/30/17 11:53 Neutrophils # 4.3 K/mcL (1.6-8.9) 12/30/17 11:53 Lymphocytes # 1.0 K/mcL (0.6-4.6) 12/30/17 11:53 Monocytes # 0.7 K/mcL (0.0-1.3) 12/30/17 11:53 Eosinophils # 0.2 K/mcL (0.0-0.6) 12/30/17 11:53 Basophils # 0.0 K/mcL (0.0-0.2) 12/30/17 11:53 Reactive Lymphocytes Present (Not Present) A 12/30/17 11:53 Platelet Estimate Normal (Normal) 12/30/17 11:53 D-Dimer 2034 ng/mLFEU (0-500) H 12/29/17 10:23 Sodium 133 mEq/L (136-145) L 12/30/17 02:10 Potassium 3.2 mEq/L (3.5-5.1) L 12/30/17 02:10 Chloride 102 mEq/L (98-107) 12/30/17 02:10 Carbon Dioxide 25 mEq/L (23-29) 12/30/17 02:10 BUN 17 mg/dL (6-20) 12/30/17 02:10 Creatinine 0.81 mg/dL (0.60-1.20) 12/30/17 02:10 Est GFR ( Amer) > 60 (> 60) 12/30/17 02:10 Est GFR (Non-Af Amer) > 60 (> 60) 12/30/17 02:10 BUN/Creatinine Ratio 21 (6-26) 12/30/17 02:10 Glucose 119 mg/dL (70-105) H 12/30/17 02:10 Calculated Osmolality 279 (280-300) L 12/30/17 02:10 Lactic Acid 1.5 mmol/L (0.5-2.2) 12/29/17 15:43 Calcium 8.3 mg/dL (8.6-10.3) L 12/30/17 02:10 Venous Ioniz Calcium 1.13 mmol/L (1.15-1.35) L 12/30/17 12:13 Total Bilirubin 0.3 mg/dL (0.3-1.0) 12/30/17 02:10 AST 9 Units/L (13-39) L 12/30/17 02:10 ALT 11 Units/L (7-52) 12/30/17 02:10 Alkaline Phosphatase 96 Units/L (34-104) 12/30/17 02:10 Serum Total Protein 6.0 g/dL (6.4-8.9) L 12/30/17 02:10 Albumin 2.7 g/dL (3.5-5.7) L 12/30/17 02:10 Globulin 3.3 g/dL (2.4-3.5) 12/30/17 02:10 Albumin/Globulin Ratio 0.8 (1.1-2.2) L 12/30/17 02:10 Chlamy pneumoniae PCR Not Detected (Not Detect) 12/29/17 16:06 Adenovirus (PCR) Not Detected (Not Detect) 12/29/17 16:06 B. pertussis DNA (PCR) Not Detected (Not Detect) 12/29/17 16:06 B.parapertussis DNA PCR Not Detected (Not Detect) 12/29/17 16:06 Coronavirus OC43 (PCR) Not Detected (Not Detect) 12/29/17 16:06 Coronavirus HKU1 (PCR) Not Detected (Not Detect) 12/29/17 16:06 Coronavirus 229E (PCR) Not Detected (Not Detect) 12/29/17 16:06 Coronavirus NL63 (PCR) Not Detected (Not Detect) 12/29/17 16:06 Hep Bs Antigen Nonreactive (Nonreactive) 12/30/17 13:30 Hep Bs Antibody 32.37 mIU/mL 12/30/17 13:30 HIV Ag/Ab Combo Qual Nonreactive (Nonreactive) 12/30/17 13:30 Human Metapneumovir PCR Not Detected (Not Detect) 12/29/17 16:06 Influenza A (H1) PCR Not Detected (Not Detect) 12/29/17 16:06 Influ A (H1N1/09) PCR Not Detected (Not Detect) 12/29/17 16:06 Influenza A (H3) PCR Not Detected (Not Detect) 12/29/17 16:06 Influenza A Untype (PCR) Not Detected (Not Detect) 12/29/17 16:06 Influenza Type B (PCR) Not Detected (Not Detect) 12/29/17 16:06 M.pneumoniae DNA (PCR) Not Detected (Not Detect) 12/29/17 16:06 Parainfluenza 1 (PCR) Not Detected (Not Detect) 12/29/17 16:06 Parainfluenza 2 (PCR) Not Detected (Not Detect) 12/29/17 16:06 Parainfluenza 3 (PCR) Not Detected (Not Detect) 12/29/17 16:06 Parainfluenza 4 (PCR) Not Detected (Not Detect) 12/29/17 16:06 RSV (PCR) Not Detected (Not Detect) 12/29/17 16:06 Entero/Rhino (PCR) DETECTED (Not Detect) A 12/29/17 16:06 Consult Discharge Plan - Plan Referrals: NONE,PCP [Primary Care Provider] -
[2017-12-30 19:11] LABS: Rheumatoid Factor < 10 IU/mL (Less than 14)
[2017-12-30 21:03] LABS: mecA Methicillin-Resist Gene Not Detected (Not Detect)
[2017-12-30 21:04] LABS: Acinetobacter baumannii by PCR Not Detected (Not Detect); Candida albicans by PCR Not Detected (Not Detect); Candida glabrata by PCR Not Detected (Not Detect); Candida krusei by PCR Not Detected (Not Detect); Candida parapsilosis by PCR Not Detected (Not Detect); Candida tropicalis by PCR Not Detected (Not Detect); Enterobacter cloacae Cmplx PCR Not Detected (Not Detect); Enterobacteriaceae by PCR Not Detected (Not Detect); Enterococcus by PCR Not Detected (Not Detect); Escherichia coli by PCR Not Detected (Not Detect); Klebsiella oxytoca by PCR Not Detected (Not Detect); Klebsiella pneumoniae by PCR Not Detected (Not Detect); Proteus by PCR Not Detected (Not Detect); Pseudomonas aeruginosa by PCR Not Detected (Not Detect); Serratia marcescens by PCR Not Detected (Not Detect); Staphylococcus aureus by PCR DETECTED (Not Detect); Staphylococcus by PCR DETECTED (Not Detect); Streptococcus agalactiae(B)PCR Not Detected (Not Detect); Streptococcus by PCR Not Detected (Not Detect); Streptococcus pneumoniae PCR Not Detected (Not Detect); Streptococcus pyogenes (A) PCR Not Detected (Not Detect)
[2017-12-30] MEDS ORDERED: Ondansetron ODT 4 MG TAB.RAPDIS SL PRN (21:57)
[2017-12-30] MEDS: Baclofen 10 MG TABLET PO SCH (22:52)
[2017-12-30] MEDS: cloNIDine HCl 0.1 MG TABLET PO SCH (22:52)
[2017-12-31] MEDS: Piperacillin/Tazobactam 3.375 GM in 0.9 % Sodium Chloride Mini Bag 100 ML IVPB SCH ×2 (02:09→07:57)
[2017-12-31 02:15] LABS: Basophils % 0.2 %; Eosinophils # 0.3 K/mcL (0.0-0.6); Eosinophils % 4.7 %; Hemoglobin 8.8 g/dL (11.5-15.4); Immature Platelets 4.7 % (1.1-6.1); Lymphocytes # 1.2 K/mcL (0.6-4.6); Lymphocytes % 20.6 %; Mean Corpuscular HGB Conc 32.6 g/dL (31.6-35.5); Mean Corpuscular Hemoglobin 27.2 pg (28.0-33.3); Mean Corpuscular Volume 83.6 fL (83.0-100.0); Mean Platelet Volume 10.7 fL (9.4-12.4); Monocytes # 0.5 K/mcL (0.0-1.3); Monocytes % 8.5 %; Neutrophils # 3.8 K/mcL (1.6-8.9); Platelet Count 163 K/mcL (140-400); Red Blood Count 3.23 M/mcL (3.82-4.97); Red Cell Distribution Width 17.1 % (11.5-14.5)
[2017-12-31] MEDS: 0.9 % Sodium Chloride 1,000 ML IVC SCH (02:22)
[2017-12-31 02:35] LABS: Anisocytosis 1+ (Not Present); Hypochromasia Present (Not Present); Platelet Estimate Normal (Normal); Reactive Lymphocytes Present (Not Present)
[2017-12-31 03:43] LABS: BUN/Creatinine Ratio 30 (6-26); Blood Urea Nitrogen 19 mg/dL (6-20); Calcium 8.1 mg/dL (8.6-10.3); Carbon Dioxide 22 mEq/L (23-29); Chloride 110 mEq/L (98-107); Glucose 97 mg/dL (70-105); Osmolality,Calculated 290 (280-300); Potassium 3.6 mEq/L (3.5-5.1); Sodium 139 mEq/L (136-145); eGFR For Non-African Americans > 60 (> 60)
[2017-12-31] MEDS: *HR* Heparin 5,000 UNIT/ML VIAL SQ SCH (05:53)
[2017-12-31] MEDS: Baclofen 10 MG TABLET PO SCH (07:56)
[2017-12-31] MEDS: cloNIDine HCl 0.1 MG TABLET PO SCH (07:56)
[2017-12-31] MEDS: Ketorolac 30 MG/ML VIAL IVP PRN (07:58)
[2017-12-31] MEDS ORDERED: Pantoprazole 40 MG VIAL IVP SCH (09:00)
--- NOTE | 2017-12-31 09:41 | Internal Med Progress Note ---
Hospitalist Progress Note - Encounter Date of Encounter: 12/31/17 Time of Encounter: 09:40 - Subjective Interval History: Ms. Arroyo is a 37-year old female who presented to the ED on 12/29 complaining of pleuritic chest pain that first began approximately 4 days ago after shooting IV heroin. Chest CTA performed in the ED was significant for right middle lobe pneumonia and multiple lung lesions concerning for acute infective processes and/or septic emboli. She was admitted for workup and treatment of possible sepsis and suspected infective endocarditis. Nursing staff reported that the patient was complaining of 8/10 right-sided chest pain that was worse with cough. They also reported that her last bowel movement was approximatley 1-2 weeks ago; however, she refused any treatment for that saying "once the drugs get out of my system I'll go like crazy". At the time of exam, she was agitated and mildly diaphoretic. She denied any shortness of breath but did report non-reproducible right-sided chest/lung pain. She refused blood draw this morning, saying she "did not want to be stuck again"; however, she voiced agreement to obtaining additional IV access to allow for blood draws throughout her stay. She stated that she was starting to go through withdrawals and asked for something to make that process easier. She says that she was trying to "get clean" prior to this hospitalization. - Exam Vitals: Temp Pulse Resp BP Pulse Ox 98.4 F 102 18 118/74 91 12/31/17 07:08 12/31/17 08:16 12/31/17 07:08 12/31/17 07:08 12/31/17 07:08 Exam: * General: Adult female sitting up in bed. She appears restless and in mild distress. She is mildly diaphoretic. * HEENT: Atraumatic and normocephalic. * Cardiovascular: Regular rate and rhythm. S1 and S2 present. Murmur present over tricuspid area. * Respiratory: Diffuse expiratory wheezes present, worse on right. Diffusely decreased breath sounds bilaterally. Patient appears slightly dyspneic. * Gastrointestinal: Bowel sounds present x 4 quadrants. Abdomen is soft and nontender without rebound or guarding. * Extremities: No clubbing, cyanosis, or edema. - Assessment and Plan (1) Infective endocarditis Current Visit: Yes Status: Suspected Assessment and Plan: On initial evaluation in the ED, significant laboratory findings were as follows : WBC 7.8, platelets 107, presence of reactive lymphocytes, d-dimer 2034, sodium 133, and potassium 3.2. Reactive lymphocytes present. Lactric acid was 1.5 Chest XR demonstrated mild right-sided airspace disease and possible fluid within the fissure on the lateral view suspicious for pneumonia. Chest CTA demonstrated no evidence of acute pulmonary embolism. CTA did demonstrate peripheral ground-glass and consolidative opacity with the anterior right middle lobe most compatible with pneumonia. Further findings included scattered pulmonary nodules throughout both lungs concerning for acute inflammatory/infectious process, which may include septic emboli. Considering this patient's recent use of IV heroin, infectious disease has been consulted due to suspicion of septic emboli and new-onset murmur heard over tricuspid area. She has been started on vancomycin and zosyn. Blood and sputum cultures are pending. (2) Pneumonia Current Visit: Yes Status: Acute Assessment and Plan: Since admission, patient has developed cough productive of thick yellow sputum. She is currently on zosyn and vancomycin for suspected endocarditis. She does complain of 8/10 right-sided lung pain, particularly when coughing. Plan to continue with broad antibiotic coverage and duonebs Q6H PRN dyspnea/wheezing. Further evaluation per infectious disease recommendations. (3) Opiate abuse, continuous Current Visit: Yes Status: Chronic Assessment and Plan: Patient reports last using IV heroin approximately 4-5 days ago. She says she feels like she is starting to withdraw; however, vital signs remain stable. Will continue to monitor closely for symptoms of withdrawal. (4) Tobacco abuse Current Visit: Yes Status: Chronic Assessment and Plan: Nicotine patch PRN. DVT Prophylaxis: IPCDs. - Time Spent with Patient Total time spent is greater than 50% in coordination of care (as documented) at patient's floor/unit and/or counseling patient: Internal Medicine: Result - Labs CBC & Chem 7: 12/31/17 01:51 12/31/17 01:51 Labs: Short CBC 12/30/17 12/31/17 Range/Units 11:53 01:51 WBC 6.3 5.8 (4.3-11.1) K/mcL Hgb 9.4 L D 8.8 L (11.5-15.4) g/dL Hct 29.1 L 27.0 L (35.3-44.9) % Plt Count 128 L 163 (140-400) K/mcL Neutrophils # 4.3 3.8 (1.6-8.9) K/mcL BMP 12/31/17 01:51 Sodium 139 Potassium 3.6 Chloride 110 H Carbon Dioxide 22 L BUN 19 Creatinine 0.64 Glucose 97 Calcium 8.1 L - ABG Interpretation ABG results: PT/INR, D-dimer D-Dimer 2034 ng/mLFEU (0-500) H 12/29/17 10:23 - VTE Documentation of Mechanical Device: Intermittent pneumatic compression device Consult Discharge Plan - Plan Referrals: NONE,PCP [Primary Care Provider] - (1) Infective endocarditis Qualifiers: Infective endocarditis organism: unspecified organism Chronicity: acute Qualified Code(s): I33.0 - Acute and subacute infective endocarditis (2) Pneumonia Qualifiers: Pneumonia type: due to unspecified organism Laterality: bilateral Lung location: unspecified part of lung Qualified Code(s): J18.9 - Pneumonia, unspecified organism
[2017-12-31 11:17] VITALS: BP 117/71
[2017-12-31] MEDS ORDERED: Aminoglycoside Consult 1 EACH MC ONE (14:07)
--- NOTE | 2017-12-31 14:23 | Infectious Disease Progress No ---
Date of Encounter: 12/31/17 Time of Encounter: 10:35 - Assessment and Plan (1) Bacteremia Status: Acute Causative organism: MSSA. Source: Likely secondary to IV drug use. Blood cultures obtained 12/29/17 are +2 out of 2 sets for MSSA. Repeat blood cultures 12/30/17 are +2 out of 2 sets for MSSA. Complicated due to septic emboli in the lungs. No endocarditis stigmata noted on exam. The patient has one major and one minor modified [place] criteria. Repeat blood cultures 2 sets in the morning. Check rheumatoid factor. Recommend transthoracic echocardiogram. If negative, will likely need a DAISHA prior to discharge. Discontinue vancomycin and Zosyn. Start Ancef 2 g IV every 8 hours. Duration of treatment depends on the clinical picture, but likely 4-6 weeks. Monitor renal function and is just antibiotics. community services officer to assist with discharge planning. Given the patient's history of IV drug use, she will require placement to complete her IV antibiotic therapy. Avoid insertion of long-term IV access until repeat blood cultures are negative 48 hours. (2) Community acquired pneumonia Status: Acute Causative organism: Unclear. Concern for viral with possible superimposed bacterial pneumonia given the patient's history of hep C and immunocompromise state. Location: Right middle lobe. Respiratory infectious panel positive for rhinovirus. Sputum culture is no growth to date. Check strep pneumo and legionella urinary antigen tests. Continue antibiotics as above. Qualifiers: Laterality: right Lung location: middle lobe of lung Qualified Code(s): J18.1 - Lobar pneumonia, unspecified organism (3) Pulmonary nodules/lesions, multiple Status: Acute Given the new finding of bacteremia, likely secondary to septic emboli. CT of the chest completed 12/29/17 showed scattered pulmonary nodules throughout both lungs with the largest measuring 1.2 cm in the right lower lobe concerning for an acute inflammatory/infectious process including possible septic emboli. Given the history of IV drug use and history of incarceration, also concern for possible TB. On a fear on his pending. Check AFB smear 3. One has been sent and is pending. We will need to more [address] the patient in airborne precautions per protocol. If AFB smears negative 3, can discontinue airborne isolation. Consider pulmonology to evaluate. Continue antibiotics as above. (4) Pleuritic chest pain Status: Acute Likely secondary to pneumonia and septic emboli. Pain management per the primary team. (5) Opioid dependence with withdrawal Status: Acute Withdrawal management per the primary team. (6) Hepatitis C Status: Acute Known hep C positive. HIV is nonreactive. Qualifiers: Viral hepatitis chronicity: chronic Hepatic coma status: without hepatic coma Qualified Code(s): B18.2 - Chronic viral hepatitis C (7) IVDU (intravenous drug user) Status: Acute History of IV drug use 1 week ago. The patient states feels like she is withdrawing and is starting to sign out AMA. Withdrawal management per the primary team. (8) Tobacco abuse Status: Chronic - Subjective Interval history: Patient seen and examined. No acute events noted overnight. Patient states overall she does not feel well. Denies fevers or chills or rigors. He reports pain in the chest with deep inspiration or cough. Reports shortness of breath and a moist cough. Reports poor appetite, but denies nausea or vomiting or diarrhea. Denies abdominal pain or urinary complaints. States she has not had a bowel movement in over a week, but this is normal for her area and denies any specific joint pain or pain in her back. She does report generalized malaise and fatigue and states overall she does not feel well. She states she thinks she is withdrawing from heroin and does not feel like we are adequately managing her withdrawal symptoms. She is considering signing out AMA. I advised her of the risks of doing so and she agrees to stay at this time. Infect Dis PN-Objective Data - Labs CBC & Chem 7: 12/31/17 01:51 12/31/17 01:51 Labs: Laboratory Results - last 24 hr 12/30/17 12/30/17 12/30/17 02:10 13:30 13:30 WBC RBC Hgb Hct MCV MCH MCHC RDW Plt Count MPV Immature Gran % Seg Neutrophils % Lymphocytes % Monocytes % Eosinophils % Basophils % Neutrophils # Lymphocytes # Monocytes # Eosinophils # Basophils # Reactive Lymphocytes Platelet Estimate Immature Plt Fraction Hypochromasia Anisocytosis Sodium Potassium Chloride Carbon Dioxide BUN Creatinine Est GFR ( Amer) Est GFR (Non-Af Amer) BUN/Creatinine Ratio Glucose Calculated Osmolality Calcium Vancomycin Trough Rheumatoid Factor < 10 A. baumannii (PCR) Not Detected Mirian albicans (PCR) Not Detected C. glabrata (PCR) Not Detected C. krusei (PCR) Not Detected C. parapsilosis (PCR) Not Detected C. tropicalis (PCR) Not Detected Enterobacteriac sp PCR Not Detected E. cloacae complex PCR Not Detected Enterococcus sp PCR Not Detected E. coli (PCR) Not Detected H. influenzae (PCR) Not Detected Hep Bs Antigen Nonreactive Hep Bs Antibody 32.37 HIV Ag/Ab Combo Qual Nonreactive Klebsiella oxytoca PCR Not Detected Klebsiella pneumoniae Not Detected List. monocytogenes PCR Not Detected N. meningitidis (PCR) Not Detected Proteus species (PCR) Not Detected Serratia marcescens PCR Not Detected Staphylococcus sp PCR DETECTED A Staph aureus (PCR) DETECTED A mecA-Methicil Res Gene Not Detected Streptococcus sp PCR Not Detected Group A Strep DNA Not Detected Group B Strep (PCR) Not Detected Strep pneumoniae (PCR) Not Detected P. aeruginosa (PCR) Not Detected Sonu/B-Vanco Res Genes N/A KPC (blaKPC) Detect PCR N/A 12/31/17 12/31/17 12/31/17 01:00 01:51 01:51 WBC 5.8 RBC 3.23 L Hgb 8.8 L Hct 27.0 L MCV 83.6 MCH 27.2 L MCHC 32.6 RDW 17.1 H Plt Count 163 MPV 10.7 Immature Gran % 1.0 Seg Neutrophils % 65.0 Lymphocytes % 20.6 Monocytes % 8.5 Eosinophils % 4.7 Basophils % 0.2 Neutrophils # 3.8 Lymphocytes # 1.2 Monocytes # 0.5 Eosinophils # 0.3 Basophils # 0.0 Reactive Lymphocytes Present A Platelet Estimate Normal Immature Plt Fraction 4.7 Hypochromasia Present A Anisocytosis 1+ A Sodium 139 Potassium 3.6 Chloride 110 H Carbon Dioxide 22 L BUN 19 Creatinine 0.64 Est GFR ( Amer) > 60 Est GFR (Non-Af Amer) > 60 BUN/Creatinine Ratio 30 H Glucose 97 Calculated Osmolality 290 Calcium 8.1 L Vancomycin Trough 8 Rheumatoid Factor A. baumannii (PCR) Mirian albicans (PCR) C. glabrata (PCR) C. krusei (PCR) C. parapsilosis (PCR) C. tropicalis (PCR) Enterobacteriac sp PCR E. cloacae complex PCR Enterococcus sp PCR E. coli (PCR) H. influenzae (PCR) Hep Bs Antigen Hep Bs Antibody HIV Ag/Ab Combo Qual Klebsiella oxytoca PCR Klebsiella pneumoniae List. monocytogenes PCR N. meningitidis (PCR) Proteus species (PCR) Serratia marcescens PCR Staphylococcus sp PCR Staph aureus (PCR) mecA-Methicil Res Gene Streptococcus sp PCR Group A Strep DNA Group B Strep (PCR) Strep pneumoniae (PCR) P. aeruginosa (PCR) Sonu/B-Vanco Res Genes KPC (blaKPC) Detect PCR Cultures: Cultures 12/30/17 02:10 Blood Culture - Preliminary Peripheral Venipuncture Gram Positive Cocci 12/29/17 15:38 Blood Culture - Preliminary Peripheral Venipuncture Gram Positive Cocci 12/29/17 15:43 Blood Culture - Preliminary Peripheral Venipuncture Gram Positive Cocci 12/30/17 02:10 Blood Culture - Preliminary Peripheral Venipuncture Gram Positive Cocci 12/30/17 18:00 Sputum Culture - Preliminary Sputum Serology 12/30/17 12/30/17 12/30/17 Range/Units 13:30 13:30 02:10 A. baumannii (PCR) Not Detected (Not Detect) Chlamy pneumoniae PCR (Not Detect) Adenovirus (PCR) (Not Detect) B. pertussis DNA (PCR) (Not Detect) B.parapertussis DNA PCR (Not Detect) Mirian albicans (PCR) Not Detected (Not Detect) C. glabrata (PCR) Not Detected (Not Detect) C. krusei (PCR) Not Detected (Not Detect) C. parapsilosis (PCR) Not Detected (Not Detect) C. tropicalis (PCR) Not Detected (Not Detect) Coronavirus OC43 (PCR) (Not Detect) Coronavirus HKU1 (PCR) (Not Detect) Coronavirus 229E (PCR) (Not Detect) Coronavirus NL63 (PCR) (Not Detect) Enterobacteriac sp PCR Not Detected (Not Detect) E. cloacae complex PCR Not Detected (Not Detect) Enterococcus sp PCR Not Detected (Not Detect) E. coli (PCR) Not Detected (Not Detect) H. influenzae (PCR) Not Detected (Not Detect) Hep Bs Antigen Nonreactive (Nonreactive) Hep Bs Antibody 32.37 mIU/mL HIV Ag/Ab Combo Qual Nonreactive (Nonreactive) Human Metapneumovir PCR (Not Detect) Influenza A (H1) PCR (Not Detect) Influ A (H1N1/09) PCR (Not Detect) Influenza A (H3) PCR (Not Detect) Influenza A Untype (PCR) (Not Detect) Influenza Type B (PCR) (Not Detect) Klebsiella oxytoca PCR Not Detected (Not Detect) Klebsiella pneumoniae Not Detected (Not Detect) List. monocytogenes PCR Not Detected (Not Detect) M.pneumoniae DNA (PCR) (Not Detect) N. meningitidis (PCR) Not Detected (Not Detect) Parainfluenza 1 (PCR) (Not Detect) Parainfluenza 2 (PCR) (Not Detect) Parainfluenza 3 (PCR) (Not Detect) Parainfluenza 4 (PCR) (Not Detect) Proteus species (PCR) Not Detected (Not Detect) RSV (PCR) (Not Detect) Entero/Rhino (PCR) (Not Detect) Serratia marcescens PCR Not Detected (Not Detect) Staphylococcus sp PCR DETECTED A (Not Detect) Staph aureus (PCR) DETECTED A (Not Detect) mecA-Methicil Res Gene Not Detected (Not Detect) Streptococcus sp PCR Not Detected (Not Detect) Group A Strep DNA Not Detected (Not Detect) Group B Strep (PCR) Not Detected (Not Detect) Strep pneumoniae (PCR) Not Detected (Not Detect) P. aeruginosa (PCR) Not Detected (Not Detect) Snou/B-Vanco Res Genes N/A (Not Detect) KPC (blaKPC) Detect PCR N/A (Not Detect) 12/29/17 Range/Units 16:06 A. baumannii (PCR) (Not Detect) Chlamy pneumoniae PCR Not Detected (Not Detect) Adenovirus (PCR) Not Detected (Not Detect) B. pertussis DNA (PCR) Not Detected (Not Detect) B.parapertussis DNA PCR Not Detected (Not Detect) Mirian albicans (PCR) (Not Detect) C. glabrata (PCR) (Not Detect) C. krusei (PCR) (Not Detect) C. parapsilosis (PCR) (Not Detect) C. tropicalis (PCR) (Not Detect) Coronavirus OC43 (PCR) Not Detected (Not Detect) Coronavirus HKU1 (PCR) Not Detected (Not Detect) Coronavirus 229E (PCR) Not Detected (Not Detect) Coronavirus NL63 (PCR) Not Detected (Not Detect) Enterobacteriac sp PCR (Not Detect) E. cloacae complex PCR (Not Detect) Enterococcus sp PCR (Not Detect) E. coli (PCR) (Not Detect) H. influenzae (PCR) (Not Detect) Hep Bs Antigen (Nonreactive) Hep Bs Antibody mIU/mL HIV Ag/Ab Combo Qual (Nonreactive) Human Metapneumovir PCR Not Detected (Not Detect) Influenza A (H1) PCR Not Detected (Not Detect) Influ A (H1N1/09) PCR Not Detected (Not Detect) Influenza A (H3) PCR Not Detected (Not Detect) Influenza A Untype (PCR) Not Detected (Not Detect) Influenza Type B (PCR) Not Detected (Not Detect) Klebsiella oxytoca PCR (Not Detect) Klebsiella pneumoniae (Not Detect) List. monocytogenes PCR (Not Detect) M.pneumoniae DNA (PCR) Not Detected (Not Detect) N. meningitidis (PCR) (Not Detect) Parainfluenza 1 (PCR) Not Detected (Not Detect) Parainfluenza 2 (PCR) Not Detected (Not Detect) Parainfluenza 3 (PCR) Not Detected (Not Detect) Parainfluenza 4 (PCR) Not Detected (Not Detect) Proteus species (PCR) (Not Detect) RSV (PCR) Not Detected (Not Detect) Entero/Rhino (PCR) DETECTED A (Not Detect) Serratia marcescens PCR (Not Detect) Staphylococcus sp PCR (Not Detect) Staph aureus (PCR) (Not Detect) mecA-Methicil Res Gene (Not Detect) Streptococcus sp PCR (Not Detect) Group A Strep DNA (Not Detect) Group B Strep (PCR) (Not Detect) Strep pneumoniae (PCR) (Not Detect) P. aeruginosa (PCR) (Not Detect) Sonu/B-Vanco Res Genes (Not Detect) KPC (blaKPC) Detect PCR (Not Detect) - Impressions Impressions Echocardiogram 12/30/17 13:31 Impressions: LVEF 65%. Normal left ventricular diastolic function. Normal right ventricular structure and function. Chordal NAKIA is present. No LVOT obstruction. Mild mitral regurgitation. Mild tricuspid regurgitation. No pulmonary hypertension. Exam - Constitutional Vitals: Temp Pulse Resp BP Pulse Ox 97.8 F 91 19 117/71 95 12/31/17 11:16 12/31/17 11:16 12/31/17 11:16 12/31/17 11:16 12/31/17 11:16 General appearance: average body habitus, cooperative, no acute distress - Head Head exam: Present: atraumatic, normal inspection, normocephalic - Eye Eye exam: Present: EOMI, normal appearance, PERRL Pupils: Present: normal accommodation Additional comments: No subconjunctival hemorrhage noted. - ENT ENT exam: Present: mucous membranes moist Additional comments: Dentition very poor. - Neck Neck exam: Present: normal inspection - Respiratory Respiratory exam: Present: CTAB. Absent: rales, respiratory distress, rhonchi, wheezes - Cardiovascular Cardiovascular exam: Present: RRR, +S1, +S2 - GI/Abdominal GI/Abdominal exam: Present: normal bowel sounds, soft. Absent: distended, tenderness - Extremities Exam Extremities exam: Present: normal inspection. Absent: joint swelling, pedal edema, tenderness - Back Exam Back exam: Present: normal inspection. Absent: paraspinal tenderness, vertebral tenderness - Neurological Exam Neurological exam: Present: alert, oriented X3, no focal deficits - Psychiatric Psychiatric exam: Present: agitated, normal affect - Skin Skin exam: Present: dry, intact, normal color, warm Additional comments: No endocarditis stigmata noted. - VTE Documentation of Mechanical Device: Intermittent pneumatic compression device Consult Discharge Plan - Plan Additional Instructions: Present to ED at [facility]. Avoid close contact with others and wear a mask to prevent spread of illness. Return to the emergency department here at any time for further evaluation and treatment, or if new concerns arise. Referrals: NONE,PCP [Primary Care Provider] - - Attending Attestation I examined this patient and my medical decision-making was reviewed with the Resident Physician. I agree with the documented findings, disposition and treatment plan as described except to the extent set forth below.
--- NOTE | 2017-12-31 14:43 | Discharge Summary ---
<Nena Sutherland N - Last Filed: 12/31/17 16:58> - NOTES TO OUTPATIENT PROVIDER Notes to Outpatient Provider: Patient was admitted for treatment of pneumonia and suspected infective endocarditis. She left AGAINST MEDICAL ADVICE prior to full infectious disease workup as she stated that she was not receiving treatment for withdrawal symptoms. She was counselled on the risks of doing so, which included, but was not limited to, worsening infection and . She was alert and oriented x 3 and voiced complete understanding and acceptance of these risks. Orders not resulted at time of discharge: Pending orders 12/30/17 12:59 Legionella Antigen [RM] Stat S. Pneumoniae Antigen [RM] Stat 12/30/17 13:30 Hepatitis B Core Ab Total Stat QuantiFERON-TB Gold In-Tube Stat 12/30/17 18:00 AFB Smear [TB] Stat Culture,Sputum with Gram Stain [RM] Stat 12/31/17 08:40 AFB Smear [TB] Routine 12/31/17 08:41 AFB Smear [TB] Routine Date of Encounter: 12/31/17 Time of Encounter: 13:15 - Discharge Diagnosis (1) Infective endocarditis Priority: Primary Status: Suspected Qualifiers: Infective endocarditis organism: unspecified organism Chronicity: acute Qualified Code(s): I33.0 - Acute and subacute infective endocarditis (2) Pneumonia Priority: Secondary Status: Acute Qualifiers: Pneumonia type: due to unspecified organism Laterality: bilateral Lung location: unspecified part of lung Qualified Code(s): J18.9 - Pneumonia, unspecified organism (3) Opiate abuse, continuous Priority: Secondary Status: Chronic (4) Tobacco abuse Priority: Secondary Status: Chronic Hospital course: Ms. Arroyo is a 37-year old female who presented to the ED on 12/29 complaining of pleuritic chest pain that first began approximately 4 days ago after shooting IV heroin. Chest CTA performed in the ED was significant for right middle lobe pneumonia and multiple lung lesions concerning for acute infective processes and/or septic emboli. She was admitted for workup and treatment of possible sepsis and suspected infective endocarditis. On initial evaluation in the ED, significant laboratory findings were as follows : WBC 7.8, platelets 107, presence of reactive lymphocytes, d-dimer 2034, sodium 133, and potassium 3.2. Reactive lymphocytes present. Lactric acid was 1.5 Chest XR demonstrated mild right-sided airspace disease and possible fluid within the fissure on the lateral view suspicious for pneumonia. Chest CTA demonstrated no evidence of acute pulmonary embolism. CTA did demonstrate peripheral ground-glass and consolidative opacity with the anterior right middle lobe most compatible with pneumonia. Further findings included scattered pulmonary nodules throughout both lungs concerning for acute inflammatory/infectious process, which may include septic emboli. Infectious disease team was consulted due to high concern for infective endocarditis considering patient history and presence of possible septic emboli. She was started on broad-spectrum antibiotic coverage with vancomycin and zosyn. Preliminary results from blood cultures drawn on 12/29 and 12/30 were demonstrated gram positive cocci, and PCR was positive for staphylococcus aureus. TTE performed on 12/30 demonstrated normal LV diastolic funciton, normal RV structure and function, chordial NAKIA present, no LVOT obstruction. Mild mitral and tricuspid regurgitation were noted. No evidence of pulmonary hypertension was seen. No vegetations were seen. Patient complained of withdrawal symptoms throughout her hospitalization and stated that she felt like she was "not receiving care for withdrawal". Psychiatry was consulted and recommended withdrawal management via subutex 4mg SL up to twice daily or symptomatic management with clonidine, baclofen, and zofran. Per their assessment, the patient was deemed competent to refuse medical treatment. She became insistent of worsening withdrawal symptoms, and stated that she needed to have subutex. Nursing staff reported that the patient stated that if she could not receive subutex, she needed to be given "real opioids" or else she would leave AMA and have a family member take her to another hospital that would "treat her withdrawal". Patient was informed that the treatment team was unable to prescribe subutex due to hospital policies, but would be able to provide symptomatic management. She stated that she wanted to leave AMA and would have her brother take her to [place], where she could receive Subutex and treatment for her infection. Patient was advised to remain in the hospital for further treatment and infectious disease workup, including DAISHA, tuberculosis screening, sputum cultures, and appropriate isolation procedures. She was informed that the benefits of staying were numerous, including treatment of her infection, support for withdrawal symptoms, and continued infectious workup. She was counselled that the risks of leaving AMA included, but were not limited to, worsening/spread of infection, transmission of infection to others, permanent disability, and/or . She was alert and oriented x 3 and voiced understanding and acceptance of these risks. She was instructed to return to the emergency department at any time for further evaluation and treatment, or if she developed new concerns. Discharge discussed with: patient, nurse - Time Spent with Patient Total time spent providing and/or coordinating discharge services: - Discharge Medications Home Medications: No Known Home Drugs 01/24/16 [History] Allergies/Adverse Reactions: 3 Allergy/AdvReac Type Severity Reaction Status Date / Time No Known Allergies Allergy Verified 01/24/16 20:07 Date of admission: 12/29/17 14:06 Primary care physician: PCP NONE Consults: 12/29/17 16:41 Consult to Nutrition [CONS] Routine Comment: Consulting Provider: NUTRITION Reason for Dietary Consult: MST Score Consult to [facility] [CONS] Routine Reason for SW Consult: d/c planning, possibly IV ATB/line placement, SNF/ hx IV drug abuse 12/29/17 18:09 Consult to Psychiatry [CONS] Routine Consulting Provider: Psych[facility] Reason consult: Other Other reason and/or additional details: patient homeless, failure to thrive, depressed, states unwilling to live no plan in place Call Completed: No 12/30/17 09:35 Consult to Invasive Line Access Team [CONS] Routine Reason for Consult: Powerglide placement Line Type: EPIV PICC line indications: Limited vascular access 12/30/17 10:23 Consult to Infectious Diseases [CONS] Routine Consulting Provider: Infectious Disease [facility] Reason for Consult: Suspect septic emboli/possible infective endocarditis Time Notified: 10:24 Call Completed: Yes Discharging clinician: Nena Sutherland Anticipated date of discharge: 12/31/17 - Constitutional Vitals: Temp Pulse Resp BP Pulse Ox 97.8 F 91 19 117/71 95 12/31/17 11:16 12/31/17 11:16 12/31/17 11:16 12/31/17 11:16 12/31/17 11:16 General appearance: Present: pleasant Exam: * General: Adult female sitting in bed. Patient is adamant about leaving unless she receives something for withdrawal symptoms. * HEENT: Atraumatic and normocephalic. * Cardiovascular: Regular rate and rhythm. S1 and S2 present. 2/6 murmur present over tricuspid area. * Respiratory: Equal breath sounds bilaterally. Scattered expiratory wheezes present. * Extremities: No clubbing, cyanosis, or edema. * Psych: Alert and oriented x 3. She appears restless and is mildly diaphoretic. - Patient Status Disposition: Left Against Medical Advice Condition: Fair Functional capacity at discharge: independent ambulation Overall status at discharge: patient is not back to baseline - Discharge Instructions Follow Up With: NONE,PCP [Primary Care Provider] - Additional Instructions: Present to ED at desired hospital [facility]. Avoid close contact with others and wear a mask to prevent spread of illness. Return to the emergency department here at any time for further evaluation and treatment, or if new concerns arise. - VTE Documentation of Mechanical Device: Intermittent pneumatic compression device <Donavan Vicente - Last Filed: 12/31/17 19:14> Orders not resulted at time of discharge: Pending orders 12/30/17 13:30 Hepatitis B Core Ab Total Stat QuantiFERON-TB Gold In-Tube Stat 12/30/17 18:00 AFB Culture, Respiratory [TB] Stat AFB Smear [TB] Stat Culture,Sputum with Gram Stain [RM] Stat 12/31/17 08:40 AFB Smear [TB] Routine 12/31/17 08:41 AFB Smear [TB] Routine Date of Encounter: 12/31/17 - Discharge Diagnosis (1) Infective endocarditis Status: Suspected Qualifiers: Infective endocarditis organism: unspecified organism Chronicity: acute Qualified Code(s): I33.0 - Acute and subacute infective endocarditis (2) Pneumonia Status: Acute Qualifiers: Pneumonia type: due to unspecified organism Laterality: bilateral Lung location: unspecified part of lung Qualified Code(s): J18.9 - Pneumonia, unspecified organism (3) Opiate abuse, continuous Status: Chronic (4) Tobacco abuse Status: Chronic (5) Bacteremia Status: Acute Assessment and Plan: MSSA - Not discharged on abx due to AMA and she left to go to another hospital. She did not wait for us to give her any prescriptions. Hospital course: Ms. Arroyo is a 37 year old female - Time Spent with Patient Total time spent providing and/or coordinating discharge services: Date of admission: 12/29/17 14:06 Primary care physician: PCP NONE Consults: 12/29/17 16:41 Consult to Nutrition [CONS] Routine Comment: Consulting Provider: NUTRITION Reason for Dietary Consult: MST Score Consult to [facility] [CONS] Routine Reason for SW Consult: d/c planning, possibly IV ATB/line placement, SNF/ hx IV drug abuse 12/29/17 18:09 Consult to Psychiatry [CONS] Routine Consulting Provider: [facility] Reason consult: Other Other reason and/or additional details: patient homeless, failure to thrive, depressed, states unwilling to live no plan in place Call Completed: No 12/30/17 09:35 Consult to Invasive Line Access Team [CONS] Routine Reason for Consult: Powerglide placement Line Type: EPIV PICC line indications: Limited vascular access 12/30/17 10:23 Consult to Infectious Diseases [CONS] Routine Consulting Provider: Infectious [facility] Reason for Consult: Suspect septic emboli/possible infective endocarditis Time Notified: 10:24 Call Completed: Yes - Constitutional Vitals: Temp Pulse Resp BP Pulse Ox 97.8 F 91 19 117/71 95 12/31/17 11:16 12/31/17 11:16 12/31/17 11:16 12/31/17 11:16 12/31/17 11:16 - Attending Attestation I examined this patient and my medical decision-making was reviewed with the Resident Physician on 12/31/17. I agree with the documented findings, disposition and treatment plan as described except to the extent set forth below. Ms Arroyo has been admitted for presumed endocarditis related to MSSA bacteremia. She has hx of opiate abuse. She is requesting opiates or Subutex. We are unable to give Subutex (it is a new start) and she does not want symptomatic treatment only. Exam alert [facility] reg Pt signed out AMA. Please see above note.
[2018-01-02 17:16] LABS: QuantiFERON Mitogen minus NIL 4.69 IU/mL
--- NOTE | 2018-01-02 17:38 | Electrocardiograph Report ---
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
[2018-01-03 10:45] LABS: QuantiFERON NIL 0.08 IU/mL; QuantiFERON-TB Gold In-Tube NEGATIVE (Negative)
== END 2017-12-31 14:08 | disposition left against medical advice (07) | DRG 720 ==
LOC: 2ANU 09:00 → EMEROOARM 09:00 → SUATTDRO 14:06 → 2ANU 14:56
PROVIDERS: ADMIT Internal Medicine; ATTEND Internal Medicine

== ENCOUNTER 2018-09-27 02:12 | Observation (INO) ==
--- NOTE | 2018-09-27 02:24 | Emergency Department Note ---
Disposition Clinical Impression: HUGH (acute kidney injury), Elevated CK Drug overdose Qualifiers: Encounter type: initial encounter Injury intent: undetermined intent Qualified Code(s): T50.904A - Poisoning by unspecified drugs, medicaments and biological substances, undetermined, initial encounter Disposition: Still a Patient Condition: Fair Referrals: NONE,PCP [Primary Care Provider] - Forms: ED Satisfaction Letter Time of Disposition: 07:38 General Adult HPI - General Chief complaint: ED Overdose Stated complaint: OD Time Seen by Provider: 09/27/18 02:23 Source: patient, EMS Mode of arrival: EMS Limitations: altered mental status Nursing Notes Reviewed: Yes Vital Signs Reviewed: Yes - History of Present Illness HPI Narrative: Patient is a 37-year-old female brought in via EMS for concern for overdose. History is obtained from EMS as patient is noncontributory. Patient is currently shouting entities and will not provide further information regarding her visit. Per EMS, patient was called for concern for overdose per police. Patient received a total of 6 mode grams of Narcan per police, and received a subsequent 2 mg of Narcan by EMS. On arrival to the ER, patient is fidgeting, yelling at staff, "shut the fuck up" and is combative to staff. She will not provide history, cannot state why she is here and is not discussed with any staff member that medication or drugs that she is taking. She is currently refusing all lab tests/testing and will not allow for her for physical exam. She will not answer any further questions on examination. Pain Scale: 0 - Related Data Previous Rx's Medication Instructions Recorded NALOXONE 4 MG Nasal Ullin [Narcan] 4 mg NS AD #2 sprays 06/01/18 Allergies Allergy/AdvReac Type Severity Reaction Status Date / Time No Known Allergies Allergy Verified 09/27/18 04:10 Review of Systems: As Per HPI Limitations: ROS unobtainable due to patients medical condition Past Medical History - Past Medical History Attestation: Yes The following information was validated with the patient. Source: unable to obtain Medical history: Reports: hepatitis Surgical history: Reports: , other Psychiatric history: Reports: anxiety M48 M60 [employer] history: Reports: no M48 M60 [employer] history - Social History Smoking Status: Current every day smoker Smokeless Tobacco Status: No Alcohol use: Reports: occasionally Drug use: Reports: cocaine, opiates, marijuana, methamphetamine, IV Drug Use, prescription drug abuse Physical Exam - General Limitations: no limitations General appearance: appears intoxicated, anxious, other (Patient is fidgeting throughout, yelling obscenities at me as well as other staff, is not physically aggressive, however moves around on her bed, limited exam, as patient will not allow it allow me to further examine her) - Neck Neck exam: Present: normal inspection - Chest Chest inspection: Present: normal inspection - Respiratory Respiratory exam: Present: normal lung sounds bilaterally. Absent: respiratory distress - Cardiovascular Cardiovascular exam: Present: regular rate, normal rhythm - Abdominal Exam Abdominal exam: Present: soft, Non-Tender - Neurological Exam Neurological exam: Present: alert - Expanded Neurological Exam Coma Scale Eye Opening: Spontaneous Coma Scale Motor Response: Obeys Commands Coma Scale Verbal Response: Inappropriate Coma Scale Total: 13 - Psychiatric Psychiatric exam: Present: agitated, anxious - Skin Skin exam: Present: warm, dry Course Vital Signs Temperature 97.7 F 09/27/18 02:14 Pulse Rate 102 09/27/18 02:14 Respiratory Rate 22 09/27/18 02:14 Blood Pressure 110/76 09/27/18 02:14 O2 Sat by Pulse Oximetry 96 09/27/18 02:14 Temperature 97.7 F 09/27/18 02:14 Pulse Rate 91 09/27/18 05:00 Respiratory Rate 20 09/27/18 05:00 Blood Pressure 111/80 09/27/18 05:00 O2 Sat by Pulse Oximetry 97 09/27/18 05:00 Oxygen Delivery Oxygen Delivery Room Air Medical Decision Making - MDM Narrative Medical decision making narrative: Patient is a 37-year-old female brought in via EMS for concern of overdose of unknown medication. In route, patient received a total of 8 mg of Narcan. On arrival to the ER, patient is verbally combative, appears anxious on examination and agitated. She initially refused all laboratory work and examination. On reevaluation by my attending at 0, patient is now much more alert, and cooperative. She currently states that she does have known history IV drug use, cocaine and meth, she does not recall why she is here or what she used earlier today. At this time lab work is pending. EKG shows no sign of QT prolongation. On reevaluation, patient is much more conversational, she does not recall the events. Laboratory work shows show leukocytosis as well as acute kidney injury with an elevated serum creatinine, she also has an elevated creatinine kinase in the 600s. Patient is not fit for rhabdomyolysis, however we do not have urine specimen. Patient has not urinated for us at this time. Continued attempts for peripheral IV, as the patient has been ordered IV fluids. Will order 2L NS bolus. At this point, patient has been signed out to Dr. Huynh and Dr. Cortes. Please refer to their MDM for further disposition and workup. - Medical Records Medical records reviewed: Yes I reviewed the patient's medical records. - Lab Data Lab results reviewed: Yes I reviewed the patient's lab results. Result diagrams: 09/27/18 04:44 09/27/18 04:03 Lab Results 09/27/18 09/27/18 09/27/18 Range/Units 04:03 04:03 04:44 WBC 16.2 H (4.3-11.1) K/mcL RBC 4.47 (3.82-4.97) M/mcL Hgb 11.0 L (11.5-15.4) g/dL Hct 36.7 (35.3-44.9) % MCV 82.1 L (83.0-100.0) fL MCH 24.6 L (28.0-33.3) pg MCHC 30.0 L (31.6-35.5) g/dL RDW 18.6 H (11.5-14.5) % Plt Count 178 (140-400) K/mcL MPV 10.0 (9.4-12.4) fL Immature Gran % 0.7 (0-4) % Seg Neutrophils % 87.6 % Lymphocytes % 4.0 % Monocytes % 7.5 % Eosinophils % 0.1 % Basophils % 0.1 % Neutrophils # 14.2 H (1.6-8.9) K/mcL Lymphocytes # 0.7 (0.6-4.6) K/mcL Monocytes # 1.2 (0.0-1.3) K/mcL Eosinophils # 0.0 (0.0-0.6) K/mcL Basophils # 0.0 (0.0-0.2) K/mcL Sodium 143 (136-145) mEq/L Potassium 3.9 (3.5-5.1) mEq/L Chloride 105 (98-107) mEq/L Carbon Dioxide 16 L (23-29) mEq/L BUN 34 H (6-20) mg/dL Creatinine 1.61 H (0.60-1.20) mg/dL Est GFR ( Amer) 44 L (> 60) Est GFR (Non-Af Amer) 36 L (> 60) BUN/Creatinine Ratio 21 (6-26) Glucose 53 L (70-105) mg/dL Calculated Osmolality 301 H (280-300) Calcium 10.2 (8.6-10.3) mg/dL Total Bilirubin 0.5 (0.3-1.0) mg/dL Direct Bilirubin 0.2 (0.0-0.2) mg/dL Indirect Bilirubin 0.3 (0.0-1.2) mg/dL AST 144 H (13-39) Units/L ALT 137 H (7-52) Units/L Alkaline Phosphatase 90 (34-104) Units/L Creatine Kinase 634 H (30-223) Units/L Serum Total Protein 8.1 (6.4-8.9) g/dL Albumin 4.7 (3.5-5.7) g/dL Globulin 3.4 (2.4-3.5) g/dL Albumin/Globulin Ratio 1.4 (1.1-2.2) Lipase 32 (11-82) Units/L Beta HCG, Quant < 1 (Less than 5) mIU/mL Salicylates < 2.5 L (15.0-30.0) mg/dL Acetaminophen < 10 L (10-20) mcg/mL Ethyl Alcohol < 10 (Less than 10) mg/dL Specimen Rejected Clotted - EKG Data EKG #1 EKG attestation: Yes I reviewed and interpreted this EKG. EKG results narrative: EKG performed at 0408 with ventricular rate of 99, regular rhythm, normal axis, no ST segment elevation or depression, no QT prolongation, QRS within normal limits, [place] within normal limits, overall appears to be sinus rhythm.
[2018-09-27 04:53] LABS: Acetaminophen < 10 mcg/mL (10-20); Alanine Aminotransferase 137 Units/L (7-52); Albumin 4.7 g/dL (3.5-5.7); Albumin/Globulin Ratio 1.4 (1.1-2.2); Alkaline Phosphatase 90 Units/L (34-104); Aspartate Amino Transferase 144 Units/L (13-39); BUN/Creatinine Ratio 21 (6-26); Bilirubin,Direct 0.2 mg/dL (0.0-0.2); Bilirubin,Indirect 0.3 mg/dL (0.0-1.2); Bilirubin,Total 0.5 mg/dL (0.3-1.0); Blood Urea Nitrogen 34 mg/dL (6-20); Calcium 10.2 mg/dL (8.6-10.3); Carbon Dioxide 16 mEq/L (23-29); Chloride 105 mEq/L (98-107); Creatine Kinase 634 Units/L (30-223); Ethanol < 10 mg/dL (Less than 10); Globulin 3.4 g/dL (2.4-3.5); Glucose 53 mg/dL (70-105); Lipase 32 Units/L (11-82); Osmolality,Calculated 301 (280-300); Potassium 3.9 mEq/L (3.5-5.1); Salicylate < 2.5 mg/dL (15.0-30.0); Sodium 143 mEq/L (136-145); Total Protein 8.1 g/dL (6.4-8.9); eGFR For African Americans 44 (> 60); eGFR For Non-African Americans 36 (> 60)
[2018-09-27 04:55] LABS: Basophils % 0.1 %; Eosinophils % 0.1 %; Hematocrit 36.7 % (35.3-44.9); Immature Granulocytes % 0.7 % (0-4); Lymphocytes # 0.7 K/mcL (0.6-4.6); Mean Corpuscular Hemoglobin 24.6 pg (28.0-33.3); Monocytes # 1.2 K/mcL (0.0-1.3); Monocytes % 7.5 %; Neutrophils # 14.2 K/mcL (1.6-8.9); Platelet Count 178 K/mcL (140-400); Red Blood Count 4.47 M/mcL (3.82-4.97); Red Cell Distribution Width 18.6 % (11.5-14.5); Segmented Neutrophils % 87.6 %
[2018-09-27 04:56] LABS: Mean Corpuscular Volume 82.1 fL (83.0-100.0); White Blood Count 16.2 K/mcL (4.3-11.1)
[2018-09-27] MEDS ORDERED: 0.9 % Sodium Chloride 1,000 ML IVC ONE ×2 (05:35→07:38)
--- NOTE | 2018-09-27 07:56 | Emergency Department Note ---
Disposition Clinical Impression: HUGH (acute kidney injury), Elevated CK Drug overdose Qualifiers: Encounter type: initial encounter Injury intent: undetermined intent Qualified Code(s): T50.904A - Poisoning by unspecified drugs, medicaments and biological substances, undetermined, initial encounter Disposition: Admitted As Inpatient Condition: Good Time of Disposition: 10:00 General Adult HPI - General Chief complaint: ED Overdose Stated complaint: OD Time Seen by Provider: 09/27/18 02:23 Source: patient, EMS Mode of arrival: EMS Limitations: altered mental status - History of Present Illness Pain Scale: 0 - Related Data Previous Rx's Medication Instructions Recorded NALOXONE 4 MG Nasal [place] [Narcan] 4 mg NS AD #2 sprays 06/01/18 Allergies Allergy/AdvReac Type Severity Reaction Status Date / Time No Known Allergies Allergy Verified 09/27/18 04:10 Past Medical History - Past Medical History Medical history: Reports: hepatitis Surgical history: Reports: , other Psychiatric history: Reports: anxiety EXPEDITER 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 EXPEDITER SERVICE ORDER history - Social History Smoking Status: Current every day smoker Smokeless Tobacco Status: No Alcohol use: Reports: occasionally Drug use: Reports: cocaine, opiates, marijuana, methamphetamine, IV Drug Use, prescription drug abuse Physical Exam - General Limitations: altered mental status General appearance: appears intoxicated, anxious, other (Patient is fidgeting throughout, yelling obscenities at me as well as other staff, is not physically aggressive, however moves around on her bed, limited exam, as patient will not allow it allow me to further examine her) Course Course Narrative: Patient taken over at sign out from Dr. Barreto. Patient was brought to the emergency department after overdose. Patient had difficulty getting IV access secondary to history of IV drug use. Patient did receive a significant amount of Narcan prior to arrival. Patient is now arousable to voice. She was found to have a Ki-1 mildly elevated CPK. A she is undergoing fluids and as well as by mouth hydration and food. Patient's glucose was found to be slightly low. The patient will undergo repeat CMP and CK after the second liter of fluids. If the patient has beginning to improve she will be able to be discharged home. Patient's labs worsen, patient will require admission. Urinalysis pending. - Reevaluation(s) Reevaluation #1: On reevaluation the patient's CK has increased to almost 2000. The patient's creatinine has improved. Patient has a low calcium. Patient will need continued hydration secondary to elevated CK and concern for rhabdo. Patient is now awake alert and oriented 3 and understands what is going on. Agreeable to admission. Patient is full code. Vital Signs Temperature 97.7 F 09/27/18 02:14 Pulse Rate 102 09/27/18 02:14 Respiratory Rate 22 09/27/18 02:14 Blood Pressure 110/76 09/27/18 02:14 O2 Sat by Pulse Oximetry 96 09/27/18 02:14 Temperature 97.4 F L 09/27/18 15:14 Pulse Rate 88 09/27/18 15:14 Respiratory Rate 18 09/27/18 15:14 Blood Pressure 114/66 09/27/18 15:14 O2 Sat by Pulse Oximetry 99 09/27/18 15:14 Oxygen Delivery Oxygen Delivery Room Air Medical Decision Making - Medical Records Medical records reviewed: Yes I reviewed the patient's medical records. - Lab Data Lab results reviewed: Yes I reviewed the patient's lab results. Result diagrams: 09/27/18 04:44 09/27/18 09:08 Lab Results 09/27/18 09/27/18 09/27/18 Range/Units 04:03 04:03 04:44 WBC 16.2 H (4.3-11.1) K/mcL RBC 4.47 (3.82-4.97) M/mcL Hgb 11.0 L (11.5-15.4) g/dL Hct 36.7 (35.3-44.9) % MCV 82.1 L (83.0-100.0) fL MCH 24.6 L (28.0-33.3) pg MCHC 30.0 L (31.6-35.5) g/dL RDW 18.6 H (11.5-14.5) % Plt Count 178 (140-400) K/mcL MPV 10.0 (9.4-12.4) fL Immature Gran % 0.7 (0-4) % Seg Neutrophils % 87.6 % Lymphocytes % 4.0 % Monocytes % 7.5 % Eosinophils % 0.1 % Basophils % 0.1 % Neutrophils # 14.2 H (1.6-8.9) K/mcL Lymphocytes # 0.7 (0.6-4.6) K/mcL Monocytes # 1.2 (0.0-1.3) K/mcL Eosinophils # 0.0 (0.0-0.6) K/mcL Basophils # 0.0 (0.0-0.2) K/mcL Sodium 143 (136-145) mEq/L Potassium 3.9 (3.5-5.1) mEq/L Chloride 105 (98-107) mEq/L Carbon Dioxide 16 L (23-29) mEq/L BUN 34 H (6-20) mg/dL Creatinine 1.61 H (0.60-1.20) mg/dL Est GFR ( Amer) 44 L (> 60) Est GFR (Non-Af Amer) 36 L (> 60) BUN/Creatinine Ratio 21 (6-26) Glucose 53 L (70-105) mg/dL Calculated Osmolality 301 H (280-300) Calcium 10.2 (8.6-10.3) mg/dL Total Bilirubin 0.5 (0.3-1.0) mg/dL Direct Bilirubin 0.2 (0.0-0.2) mg/dL Indirect Bilirubin 0.3 (0.0-1.2) mg/dL AST 144 H (13-39) Units/L ALT 137 H (7-52) Units/L Alkaline Phosphatase 90 (34-104) Units/L Creatine Kinase 634 H (30-223) Units/L Serum Total Protein 8.1 (6.4-8.9) g/dL Albumin 4.7 (3.5-5.7) g/dL Globulin 3.4 (2.4-3.5) g/dL Albumin/Globulin Ratio 1.4 (1.1-2.2) Lipase 32 (11-82) Units/L Beta HCG, Quant < 1 (Less than 5) mIU/mL Ur Specimen Adequacy Urine Color (Yellow) Urine Clarity (Clear) Urine pH (5.0-8.0) pH Units Ur Specific [place] (1.010-1.025) Urine Protein (Neg-Trace) mg/dL Urine Glucose (UA) (Normal) mg/dL Urine Ketones (Negative) mg/dL Urine Blood (Negative) Urine Nitrite (Negative) Urine Bilirubin (Negative) Urine Urobilinogen (Normal) mg/dL Ur Leukocyte Esterase (Negative) Urine Microscopic RBC (0-3) per hpf Urine Microscopic WBC (0-3) per hpf Ur Squamous Epith Cells (None-Few) per lpf Urine Bacteria (None-Few) per hpf Hyaline Casts (None-Few) per lpf Salicylates < 2.5 L (15.0-30.0) mg/dL Urine Opiates Screen (Nbiiia=686) ng/mL Acetaminophen < 10 L (10-20) mcg/mL Ur Barbiturates Screen (Cqixva=198) ng/mL Ur Phencyclidine Scrn (Cutoff=25) ng/mL Ur Amphetamines Screen (Tmeefh=0131) ng/mL U Benzodiazepines Scrn (Lyqaln=898) ng/mL Urine Cocaine Screen (Cutoff= 300) ng/mL U Marijuana (THC) Screen (Cutoff = 50) ng/mL Ur Drug Screen Interp Ethyl Alcohol < 10 (Less than 10) mg/dL Specimen Rejected Clotted 09/27/18 09/27/18 09/27/18 Range/Units 09:08 09:34 09:34 WBC (4.3-11.1) K/mcL RBC (3.82-4.97) M/mcL Hgb (11.5-15.4) g/dL Hct (35.3-44.9) % MCV (83.0-100.0) fL MCH (28.0-33.3) pg MCHC (31.6-35.5) g/dL RDW (11.5-14.5) % Plt Count (140-400) K/mcL MPV (9.4-12.4) fL Immature Gran % (0-4) % Seg Neutrophils % % Lymphocytes % % Monocytes % % Eosinophils % % Basophils % % Neutrophils # (1.6-8.9) K/mcL Lymphocytes # (0.6-4.6) K/mcL Monocytes # (0.0-1.3) K/mcL Eosinophils # (0.0-0.6) K/mcL Basophils # (0.0-0.2) K/mcL Sodium 139 (136-145) mEq/L Potassium 3.8 (3.5-5.1) mEq/L Chloride 110 H (98-107) mEq/L Carbon Dioxide 22 L (23-29) mEq/L BUN 32 H (6-20) mg/dL Creatinine 1.03 (0.60-1.20) mg/dL Est GFR ( Amer) > 60 (> 60) Est GFR (Non-Af Amer) > 60 (> 60) BUN/Creatinine Ratio 31 H (6-26) Glucose 92 (70-105) mg/dL Calculated Osmolality 295 (280-300) Calcium 7.9 L (8.6-10.3) mg/dL Total Bilirubin 0.3 (0.3-1.0) mg/dL Direct Bilirubin (0.0-0.2) mg/dL Indirect Bilirubin (0.0-1.2) mg/dL AST 177 H (13-39) Units/L ALT 155 H (7-52) Units/L Alkaline Phosphatase 49 (34-104) Units/L Creatine Kinase 1960 H (30-223) Units/L Serum Total Protein 6.3 L (6.4-8.9) g/dL Albumin 3.8 (3.5-5.7) g/dL Globulin 2.5 (2.4-3.5) g/dL Albumin/Globulin Ratio 1.5 (1.1-2.2) Lipase (11-82) Units/L Beta HCG, Quant (Less than 5) mIU/mL Ur Specimen Adequacy See below A Urine Color Yellow (Yellow) Urine Clarity Clear (Clear) Urine pH 6.0 (5.0-8.0) pH Units Ur Specific [place] 1.017 (1.010-1.025) Urine Protein 100 H (Neg-Trace) mg/dL Urine Glucose (UA) Normal (Normal) mg/dL Urine Ketones Negative (Negative) mg/dL Urine Blood Moderate H (Negative) Urine Nitrite Negative (Negative) Urine Bilirubin Negative (Negative) Urine Urobilinogen Normal (Normal) mg/dL Ur Leukocyte Esterase Negative (Negative) Urine Microscopic RBC 0-3 (0-3) per hpf Urine Microscopic WBC 5-15 H (0-3) per hpf Ur Squamous Epith Cells Many H (None-Few) per lpf Urine Bacteria None Seen (None-Few) per hpf Hyaline Casts None Seen (None-Few) per lpf Salicylates (15.0-30.0) mg/dL Urine Opiates Screen Positive H (Bvjdta=349) ng/mL Acetaminophen (10-20) mcg/mL Ur Barbiturates Screen Negative (Hkubkn=126) ng/mL Ur Phencyclidine Scrn Negative (Cutoff=25) ng/mL Ur Amphetamines Screen Positive H (Dkrbwz=0557) ng/mL U Benzodiazepines Scrn Negative (Kbtnzw=554) ng/mL Urine Cocaine Screen Positive H (Cutoff= 300) ng/mL U Marijuana (THC) Screen Negative (Cutoff = 50) ng/mL Ur Drug Screen Interp See Below Ethyl Alcohol (Less than 10) mg/dL Specimen Rejected
--- NOTE | 2018-09-27 08:40 | Emergency Department Note ---
Disposition Clinical Impression: HUGH (acute kidney injury), Elevated CK Drug overdose Qualifiers: Encounter type: initial encounter Injury intent: undetermined intent Qualified Code(s): T50.904A - Poisoning by unspecified drugs, medicaments and biological substances, undetermined, initial encounter Disposition: Still a Patient Condition: Fair Referrals: NONE,PCP [Primary Care Provider] - Forms: ED Satisfaction Letter Time of Disposition: 07:38 General Adult HPI - General Chief complaint: ED Overdose Stated complaint: OD Time Seen by Provider: 09/27/18 02:23 Source: patient, EMS Mode of arrival: EMS Limitations: altered mental status Nursing Notes Reviewed: Yes Vital Signs Reviewed: Yes - History of Present Illness Pain Scale: 0 - Related Data Previous Rx's Medication Instructions Recorded NALOXONE 4 MG Nasal [place] [Narcan] 4 mg NS AD #2 sprays 06/01/18 Allergies Allergy/AdvReac Type Severity Reaction Status Date / Time No Known Allergies Allergy Verified 09/27/18 04:10 Past Medical History - Past Medical History Medical history: Reports: hepatitis Surgical history: Reports: , other Psychiatric history: Reports: anxiety 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 COMMERCIAL KITCHEN SERVICE TECHNICIAN history - Social History Smoking Status: Current every day smoker Smokeless Tobacco Status: No Alcohol use: Reports: occasionally Drug use: Reports: cocaine, opiates, marijuana, methamphetamine, IV Drug Use, prescription drug abuse Physical Exam - General Limitations: altered mental status General appearance: appears intoxicated, anxious, other (Patient is fidgeting throughout, yelling obscenities at me as well as other staff, is not physically aggressive, however moves around on her bed, limited exam, as patient will not allow it allow me to further examine her) Course Vital Signs Temperature 97.7 F 09/27/18 02:14 Pulse Rate 102 09/27/18 02:14 Respiratory Rate 22 09/27/18 02:14 Blood Pressure 110/76 09/27/18 02:14 O2 Sat by Pulse Oximetry 96 09/27/18 02:14 Temperature 97.7 F 09/27/18 02:14 Pulse Rate 92 09/27/18 07:40 Respiratory Rate 11 09/27/18 07:40 Blood Pressure 105/90 09/27/18 07:40 O2 Sat by Pulse Oximetry 94 09/27/18 07:40 Oxygen Delivery Oxygen Delivery Room Air Medical Decision Making - Medical Records Medical records reviewed: Yes I reviewed the patient's medical records. - Lab Data Lab results reviewed: Yes I reviewed the patient's lab results. Result diagrams: 09/27/18 04:44 09/27/18 04:03 Lab Results 09/27/18 09/27/18 09/27/18 Range/Units 04:03 04:03 04:44 WBC 16.2 H (4.3-11.1) K/mcL RBC 4.47 (3.82-4.97) M/mcL Hgb 11.0 L (11.5-15.4) g/dL Hct 36.7 (35.3-44.9) % MCV 82.1 L (83.0-100.0) fL MCH 24.6 L (28.0-33.3) pg MCHC 30.0 L (31.6-35.5) g/dL RDW 18.6 H (11.5-14.5) % Plt Count 178 (140-400) K/mcL MPV 10.0 (9.4-12.4) fL Immature Gran % 0.7 (0-4) % Seg Neutrophils % 87.6 % Lymphocytes % 4.0 % Monocytes % 7.5 % Eosinophils % 0.1 % Basophils % 0.1 % Neutrophils # 14.2 H (1.6-8.9) K/mcL Lymphocytes # 0.7 (0.6-4.6) K/mcL Monocytes # 1.2 (0.0-1.3) K/mcL Eosinophils # 0.0 (0.0-0.6) K/mcL Basophils # 0.0 (0.0-0.2) K/mcL Sodium 143 (136-145) mEq/L Potassium 3.9 (3.5-5.1) mEq/L Chloride 105 (98-107) mEq/L Carbon Dioxide 16 L (23-29) mEq/L BUN 34 H (6-20) mg/dL Creatinine 1.61 H (0.60-1.20) mg/dL Est GFR ( Amer) 44 L (> 60) Est GFR (Non-Af Amer) 36 L (> 60) BUN/Creatinine Ratio 21 (6-26) Glucose 53 L (70-105) mg/dL Calculated Osmolality 301 H (280-300) Calcium 10.2 (8.6-10.3) mg/dL Total Bilirubin 0.5 (0.3-1.0) mg/dL Direct Bilirubin 0.2 (0.0-0.2) mg/dL Indirect Bilirubin 0.3 (0.0-1.2) mg/dL AST 144 H (13-39) Units/L ALT 137 H (7-52) Units/L Alkaline Phosphatase 90 (34-104) Units/L Creatine Kinase 634 H (30-223) Units/L Serum Total Protein 8.1 (6.4-8.9) g/dL Albumin 4.7 (3.5-5.7) g/dL Globulin 3.4 (2.4-3.5) g/dL Albumin/Globulin Ratio 1.4 (1.1-2.2) Lipase 32 (11-82) Units/L Beta HCG, Quant < 1 (Less than 5) mIU/mL Salicylates < 2.5 L (15.0-30.0) mg/dL Acetaminophen < 10 L (10-20) mcg/mL Ethyl Alcohol < 10 (Less than 10) mg/dL Specimen Rejected Clotted - EKG Data EKG #1 EKG attestation: Yes I reviewed and interpreted this EKG. EKG results narrative: EKG shows normal sinus rhythm with ventricular rate of 99. No significant ST segment elevation or depression. No arrhythmia or ectopy. Normal EKG. Attestation Statement - Attestation Attestation: ISalvador MD, personally evaluated this patient and discussed their management with the resident physician. I reviewed the resident's note and agree with the documented findings, medical decision making, and plan of care. I reviewed the residents documentation and agree with the residents assessment and plan of care. I have personally had face to face time with the patient. I personally supervised and was present for the lopez/critical portions of the following procedures completed by the resident: EKG interpretation. Patient is a 37-year-old female who presents to the emergency department by EMS after an overdose. Patient was found unresponsive by a bystander and EMS was called. She apparently received 6 mg of Narcan by police and another 2 mg per EMS. On arrival here the patient is alert but she is confused and combative. Unable to provide any significant history initially. After short time of observation she did become more alert and oriented and able to answer questions. She states she does not remember taking anything tonight and she does not know what happened. She does admit to a history of drug use and states that she has been trying to stay clean. She states she usually uses heroin. She complains that both legs feel numb and tingly like they are asleep. She denies any back pain. She denies any headache or neck pain. On examination patient is a well-developed well-nourished female in no acute distress. She appears altered secondary to drugs but she is responsive to verbal stimuli and answers questions appropriately. No cyanosis or diaphoresis. No obvious signs of trauma. Head is atraumatic. PERRLA. EOMs intact. Neck supple and nontender. Breath sounds are clear and equal bilaterally. Heart regular rate and rhythm. Abdomen soft and nontender with normal bowel sounds. No focal neurological deficits. Sensation equal bilaterally in upper and lower extremities. Normal dorsiflexion and plantarflexion of feet and toes. Normal strength in upper and lower extremities. Labs reviewed. Patient noted to have an elevated CK and also mild acute kidney injury. Patient will receive IV fluids and needs reevaluated after treatment. At morning shift change patient is signed out to the oncoming dayshift team, Dr. Huynh and Dr. Cortes.
[2018-09-27 09:41] LABS: Alanine Aminotransferase 155 Units/L (7-52); Albumin 3.8 g/dL (3.5-5.7); Albumin/Globulin Ratio 1.5 (1.1-2.2); Alkaline Phosphatase 49 Units/L (34-104); Aspartate Amino Transferase 177 Units/L (13-39); BUN/Creatinine Ratio 31 (6-26); Bilirubin,Total 0.3 mg/dL (0.3-1.0); Blood Urea Nitrogen 32 mg/dL (6-20); Calcium 7.9 mg/dL (8.6-10.3); Carbon Dioxide 22 mEq/L (23-29); Chloride 110 mEq/L (98-107); Creatine Kinase 1960 Units/L (30-223); Globulin 2.5 g/dL (2.4-3.5); Glucose 92 mg/dL (70-105); Osmolality,Calculated 295 (280-300); Potassium 3.8 mEq/L (3.5-5.1); Sodium 139 mEq/L (136-145); Total Protein 6.3 g/dL (6.4-8.9); eGFR For African Americans > 60 (> 60); eGFR For Non-African Americans > 60 (> 60)
[2018-09-27 09:42] LABS: Bilirubin,Urine Negative (Negative); Blood,Urine Moderate (Negative); Clarity,Urine Clear (Clear); Color,Urine Yellow (Yellow); Glucose,Urine (UA) Normal (Normal); Ketones,Urine Negative (Negative); Leukocyte Esterase,Urine Negative (Negative); Nitrite,Urine Negative (Negative); Protein,Urine 100 mg/dL (Neg-Trace); Specific Gravity,Urine 1.017 (1.010-1.025); Urobilinogen,Urine Normal (Normal)
[2018-09-27 09:45] LABS: Bacteria,Urine None Seen per hpf (None-Few); Hyaline Casts,Urine None Seen per lpf (None-Few); RBC,Urine 0-3 per hpf (0-3); Squamous Epithelial Cell,Urine Many per lpf (None-Few)
[2018-09-27 09:50] LABS: Amphetamine Screen,Urine Positive ng/mL (Cutoff=1000); Barbiturate Screen,Urine Negative ng/mL (Cutoff=200); Benzodiazepines Screen,Urine Negative ng/mL (Cutoff=200); Cannabinoid Screen,Urine Negative ng/mL (Cutoff = 50); Cocaine Screen,Urine Positive ng/mL (Cutoff= 300); Opiate Screen,Urine Positive ng/mL (Cutoff=300); Phencyclidine Screen,Urine Negative ng/mL (Cutoff=25)
[2018-09-27] MEDS ORDERED: 0.9 % Sodium Chloride 1,000 ML IVC SCH ×2 (10:45→18:00)
--- NOTE | 2018-09-27 13:30 | Electrocardiograph Report ---
[place] [id number] Test Date: 2018-09-27 Pat Name: Luiza Arroyo Department: [id number] Room: [facility] Gender: F Electronic Health Records Specialist: : 1980 Requested By: Aimee Bunn Order Number: [id number] Reading MD: Jeffery Restrepo Measurements Intervals [place] Rate: 99 P: 66 ID: [id number] QRS: 110 QRSD: 86 T: 21 QT: 374 QTc: 480 Interpretive Statements Sinus rhythm Borderline right axis deviation Electronically Signed On 09-27-2018 13:29:06 EDT by Jeffery Restrepo
[2018-09-27] MEDS ORDERED: Naloxone 0.4 MG/ML INJ IVP PRN (16:55)
--- NOTE | 2018-09-27 18:00 | Internal Med History&Physical ---
Date of Encounter: 09/27/18 Time of Encounter: 18:00 Internal Medicine - H&P: HPI Chief complaint: Found wandering the streets History of present illness: Ms. Arroyo is a 37 year old female with pmh of drug abuse presenting s/p being found down today. 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 She says she was recently released from senior care and went to a friend's place last night to libertarian. She snorted some heroin and denies any doing any other drugs or alcohol. She says she doesn't recall any other events until she was found on [facility] today. Per EMS reports, patient was found unresponsive by a bystander and EMS was called. She got 6mg of narcan by police and 2mg of narcan. She is presently alert and oriented to person and place. She complains of tingling and some left leg pain but denies any other acute complaints In the ER, she was noted to have a CPK of 1900 and a leukocytosis of 16 and she is being admitted for further management Past Med Surg Social Fam HX - Past Medical History Medical history: COPD, hepatitis Additional medical history: chronic leg pain. hepatitis C Psychiatric history: anxiety - Past Surgical History Surgical History: , other Additional surgical history: femur - Social History Smoking Status: Current every day smoker Smokeless Tobacco Status: No Alcohol use: occasionally Drug use: cocaine, opiates, marijuana, methamphetamine, IV Drug Use, prescriptio n drug abuse - Family History Mother Living Status: Hx Family Endocrine Disorder: Yes (DM) Father Living Status: Still Living Internal Medicine - H&P: Meds NALOXONE 4 MG Nasal [place] [Narcan] 4 mg NS AD #2 sprays 06/01/18 [Rx] Allergy/AdvReac Type Severity Reaction Status Date / Time No Known Allergies Allergy Verified 09/27/18 04:10 All Systems PM: A 10-system review of systems was performed and is negative for pertinent findings except as documented above in the HPI. - Constitutional Constitutional: no chills, no fever(s), no night sweats - EENT Eyes: no change in vision, no discharge, no pain, no photophobia Ears: no ear discharge, no ear pain, no tinnitus Nose, mouth and throat: no dysphagia, no nasal discharge, no neck pain, no sore throat - Cardiovascular Cardiovascular ROS IM: no chest pain, no diaphoresis, no dyspnea, no lightheadedness, no palpitations, no syncope - Respiratory Respiratory: no cough, no dyspnea, no wheezing, no excessive phlegm production - Gastrointestinal Gastrointestinal: no abdominal pain, no diarrhea, no hematemesis, no hematochezia, no melena, no nausea, no vomiting - Genitourinary Genitourinary: no change in urinary stream, no dysuria, no flank pain, no hematuria - Musculoskeletal Musculoskeletal ROS IM: no numbness, no tingling - Integumentary Integumentary IM: no rash, no unusual bruising - Neurological Neurological ROS: tingling, no confusion, no convulsions, no focal weakness, no numbness, no tremor(s) - Hematologic/Lymphatic Hematologic/Lymphatic: no easy bruising - Constitutional Vitals: Temp Pulse Resp BP Pulse Ox 97.4 F L 88 18 114/66 99 09/27/18 15:14 09/27/18 15:14 09/27/18 15:14 09/27/18 15:14 09/27/18 15:14 Exam: NAD - Head Head exam: Present: atraumatic, normocephalic - Eye Eye exam: Present: PERRL, conjuntiva pink, sclera anicteric Pupils: Present: PERRL - Neck Neck exam general surgery: Present: supple, trachea midline. Absent: lymphadenopathy - Respiratory Respiratory exam: Present: CTAB. Absent: accessory muscle use, rales, rhonchi, wheezes - Cardiovascular Cardiovascular exam: Present: RRR, +S1, +S2. Absent: diastolic murmur, gallop, rubs, systolic murmur - GI/Abdominal GI/Abdominal exam: Present: normal bowel sounds, soft, no peritoneal signs. Absent: distended, tenderness - Extremities Exam Extremities exam: Present: warm, radial pulses palpable and symmetrical. Absent: calf tenderness, cyanotic, pedal edema - Neurological Exam Neurological exam: Present: CN II-XII intact, oriented X3, no focal deficits. Absent: pronater drift, facial droop, speech deficit - Skin Skin exam: Present: dry, intact Internal Med - H&P Results - Labs CBC & Chem 7: 09/27/18 04:44 09/27/18 09:08 Labs: Short CBC 09/27/18 Range/Units 04:44 WBC 16.2 H (4.3-11.1) K/mcL Hgb 11.0 L (11.5-15.4) g/dL Hct 36.7 (35.3-44.9) % Plt Count 178 (140-400) K/mcL Neutrophils # 14.2 H (1.6-8.9) K/mcL BMP 09/27/18 09/27/18 04:03 09:08 Sodium 143 139 Potassium 3.9 3.8 Chloride 105 110 H Carbon Dioxide 16 L 22 L BUN 34 H 32 H Creatinine 1.61 H 1.03 Glucose 53 L 92 Calcium 10.2 7.9 L Liver Function 09/27/18 09/27/18 Range/Units 04:03 09:08 Total Bilirubin 0.5 0.3 (0.3-1.0) mg/dL Direct Bilirubin 0.2 (0.0-0.2) mg/dL AST 144 H 177 H (13-39) Units/L ALT 137 H 155 H (7-52) Units/L Alkaline Phosphatase 90 49 (34-104) Units/L Albumin 4.7 3.8 (3.5-5.7) g/dL Urine 09/27/18 Range/Units 09:34 Urine Color Yellow (Yellow) Urine Clarity Clear (Clear) Urine pH 6.0 (5.0-8.0) pH Units Ur Specific [place] 1.017 (1.010-1.025) Urine Protein 100 H (Neg-Trace) mg/dL Urine Glucose (UA) Normal (Normal) mg/dL - Assessment and Plan (1) Rhabdomyolysis Current Visit: Yes Status: Acute Assessment and plan: Pt was found down s/p drug abuse and CPK was elevated. Possibly secondary to dehydration and drug abuse Will continue aggressive IV fluids with normal saline at 150ml/hr. Monitor electrolytes Repeat CPK in am Qualifiers: Qualified Code(s): T79.6XXA - Traumatic ischemia of muscle, initial encounter (2) Drug abuse Current Visit: Yes Status: Acute Assessment and plan: Counseled (3) Leukocytosis Current Visit: Yes Status: Acute Assessment and plan: Possibly secondary to dehydration/hemoconcentration Hydrate with fluids. Obtain xray and blood cultures to r/o infection Qualifiers: Qualified Code(s): D72.829 - Elevated white blood cell count, unspecified (4) Transaminitis Current Visit: Yes Status: Acute Assessment and plan: Hydrate and repeat LFTs. possibly from drugs vs dehydration Obtain viral hepatitis panel (5) DVT prophylaxis Current Visit: Yes Status: Acute Assessment and plan: Heparin sc - Time Spent With Patient Total time spent is greater than 50% in coordination of care (as documented) at patient's floor/unit and/or counseling patient:
[2018-09-27 19:32] LABS: Hepatitis B Surface Antigen Nonreactive (Nonreactive)
[2018-09-27 19:39] VITALS: BP 117/70
[2018-09-27 20:01] LABS: Hepatitis B Core IgM Nonreactive (Nonreactive)
[2018-09-27 20:03] LABS: Hepatitis A Antibody IgM Nonreactive (Nonreactive)
--- NOTE | 2018-09-27 23:08 | Event Note ---
Date of Encounter: 09/27/18 Time of Encounter: 19:40 Alerted by pts. nurse JOHN Andre that the patient had been admitted for an overdose and was found unresponsive on the street. Patient's CK was elevated which prevented her from being discharged. Patient now reporting she was leaving AMA and speak to me. Went to see the pt. who was resting in bed eating. I asked her why she was wanting to leave AMA. Pt. stated this is the worst hospital ever and no one gives a crap about her. I stated that she had overdosed by snorting heroin after being in group home and going to a democrat. I reminded her that she was found unresponsive on [facility] and had to be given 2 mg of Narcan. Pt. stated that she did not remember this or how she got to the street. I reminded her that she has a history of infective endocarditis due to her IV drug abuse. She stated she was unaware of this. I informed her that she was too sick to leave AMA and should stay to be observed since she had just OD'd on heroin. Pt. stated she was feeling better and was leaving. I did a mini mental exam on the pt. to make sure she was A&O x3 which she was. Pt. was not found to be mentally incapacitated so DIH is inappropriate. I again reiterated the risks, even possible , for her leaving AMA and asked to repeat back to me what I had told her which she did. Pt. said she understood the risks and was willing to take them by leaving AMA. Nurse instructed to fill out the AMA paperwork and have the pt. sign and then remove IV access which she did. I urged the pt. to return to the nearest ED if she began to experience health problems. She expressed understanding.
[2018-09-28 00:04] LABS: Hepatitis C Virus Antibody Reactive (Nonreactive)
[2018-09-28] MEDS ORDERED: *HR* Heparin 5,000 UNIT/ML VIAL SQ SCH (06:00)
--- NOTE | 2018-09-28 08:50 | Discharge Summary ---
Orders not resulted at time of discharge: Pending orders 09/27/18 17:17 Culture,Blood [BC] Routine Date of Encounter: 09/28/18 Time of Encounter: 08:00 - Discharge Diagnosis (1) Rhabdomyolysis Priority: Primary Status: Acute Assessment and Plan: 37 year old female with pmh of drug abuse presenting s/p being found down today. 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 She says she was recently released from snf and went to a friend's place last night to alliance party. She snorted some heroin and denies any doing any other drugs or alcohol. She says she doesn't recall any other events until she was found on [facility] today. Per EMS reports, patient was found unresponsive by a bystander and EMS was called. She got 6mg of narcan by police and 2mg of narcan. She is presently alert and oriented to person and place. She complains of tingling and some left leg pain but denies any other acute complaints In the ER, she was noted to have a CPK of 1900 and a leukocytosis of 16 and she is being admitted for further management She was assessed with acute rhabdomyolysis s/p drug abuse and CPK was elevated. Possibly secondary to dehydration and drug abuse. She was on aggressive IV fluids with normal saline at 150ml/hr. She apparently signed out against medical advice overnight once she started to feel better Qualifiers: Qualified Code(s): T79.6XXA - Traumatic ischemia of muscle, initial encounter (2) Drug abuse Priority: Primary Status: Acute (3) Leukocytosis Priority: Primary Status: Acute Qualifiers: Qualified Code(s): D72.829 - Elevated white blood cell count, unspecified (4) Transaminitis Priority: Primary Status: Acute (5) DVT prophylaxis Priority: Primary Status: Acute Hospital course: Ms. Arroyo is a 37 year old female - Time Spent with Patient Total time spent providing and/or coordinating discharge services: - Discharge Medications Prescriptions: No Action NALOXONE 4 MG Nasal [place]ert[place] [Narcan] 4 mg NS AD #2 sprays Home Medications: NALOXONE 4 MG Nasal [place]ert[place] [Narcan] 4 mg NS AD #2 sprays 06/01/18 [Rx] Allergies/Adverse Reactions: Allergy/AdvReac Type Severity Reaction Status Date / Time No Known Allergies Allergy Verified 09/27/18 04:10 Date of admission: 09/27/18 13:09 Primary care physician: PCP NONE - Constitutional Vitals: Temp Pulse Resp BP Pulse Ox 97.8 F 77 18 117/70 98 09/27/18 19:38 09/27/18 19:38 09/27/18 19:38 09/27/18 19:38 09/27/18 19:38 Exam: NAD - Head Head exam: Present: atraumatic, normocephalic - Eye Eye exam: Present: PERRL, conjuntiva pink, sclera anicteric Pupils: Present: PERRL - Neck Neck exam general surgery: Present: supple, trachea midline. Absent: lymphadenopathy - Respiratory Respiratory exam: Present: CTAB. Absent: accessory muscle use, rales, rhonchi, wheezes - Cardiovascular Cardiovascular exam: Present: RRR, +S1, +S2. Absent: diastolic murmur, gallop, rubs, systolic murmur - GI/Abdominal GI/Abdominal exam: Present: normal bowel sounds, soft, no peritoneal signs. Absent: distended, tenderness - Extremities Exam Extremities exam: Present: warm, radial pulses palpable and symmetrical. Absent: calf tenderness, cyanotic, pedal edema - Neurological Exam Neurological exam: Present: CN II-XII intact, oriented X3, no focal deficits. Absent: pronater drift, facial droop, speech deficit - Skin Skin exam: Present: dry, intact - Patient Status Disposition: Left Against Medical Advice Condition: Fair - Discharge Instructions Follow Up With: NONE,PCP [Primary Care Provider] -
== END 2018-09-27 21:16 | disposition left against medical advice (07) ==
LOC: 3NENU 02:12 → EMEROOARM 02:12 → 3NENU 14:24
PROVIDERS: ADMIT Internal Medicine Nephrology; ATTEND Internal Medicine Nephrology